=== PATIENT | female | born 1995 | race African-American/Black ===

== ENCOUNTER 2022-01-11 19:47 | Emergency (ER) | payer OTHER ==
[2022-01-11 20:49] LABS: Absolute Lymphocytes (CBC) 2.7 K/uL (0.7-4.9); Hematocrit 33.3 % (36.0-45.0); Lymphocytes % 37.7 % (15.3-44.8); RBC Red Blood Cell Count 4.62 M/uL (3.86-4.86)
[2022-01-11 21:06] LABS: Albumin 3.7 g/dL (3.4-5.0); Bilirubin Total 0.4 mg/dL (0.2-1.0); Potassium 3.8 mmol/L (3.5-5.1); Protein, Total 7.2 g/dL (6.4-8.2)
[2022-01-11 21:14] LABS: Urine Bacteria <20 /HPF (<20); Urine Mucus 1+ /HPF (None Seen); Urine RBC <5 /HPF (None Seen)
--- NOTE | 2022-01-11 21:42 | ER ---
Nurse's Notes [facility] Name: Irma López Age: 26 yrs Sex: Female : 1995 Arrival Date: 01/11/2022 Time: 19:51 Bed 11 Private MD: Diagnosis: Lower abdominal pain, unspecified-Left, left flank Presentation: 01/11 20:13 Chief complaint: Left flank pain that radiates to LLQ, vaginal itching, and spotty hb vaginal bleeding after unprotected intercourse 2 days ago. Coronavirus screen: At this time, the client does not indicate any symptoms associated with coronavirus-19. Ebola Screen: No symptoms or risks identified at this time. Initial Sepsis Screen: Does the patient meet any 2 criteria? No. Patient's initial sepsis screen is negative. Does the patient have a suspected source of infection? No. Patient's initial sepsis screen is negative. Risk Assessment: Do you want to hurt yourself or someone else? Patient reports no desire to harm self or others. Onset of symptoms was January 09, 2022. 20:13 Method Of Arrival: Ambulatory hb 20:13 Acuity: TAZ 3 hb VALANCE CUTTER: 20:15 LMP 12/24/2021 hb Historical: - Allergies: 20:15 No Known Allergies; hb - PMHx: 20:15 Asthma; hb - Immunization history:: Adult Immunizations up to date. - Social history:: Smoking status: Patient denies any tobacco usage or history of. Screenin:37 Abuse screen: Denies threats or abuse. Denies injuries from another. Nutritional ld1 screening: No deficits noted. Tuberculosis screening: No symptoms or risk factors identified. Fall Risk None identified. Assessment: 20:37 General: Appears in no apparent distress. comfortable, Behavior is calm, cooperative, ld1 appropriate for age. Pain: Complains of pain in abdomen Pain does not radiate. Pain currently is 5 out of 10 on a pain scale. Quality of pain is described as crampy. Neuro: Level of Consciousness is awake, alert, obeys commands, Oriented to person, place, time, situation. Cardiovascular: Capillary refill < 3 seconds Patient's skin is warm and dry. Respiratory: Airway is patent Respiratory effort is even, unlabored. GI: Abdomen is flat, non-distended, Bowel sounds present X 4 quads. Abd is soft Abd is non tender. : No signs and/or symptoms were reported regarding the genitourinary system. EENT: No signs and/or symptoms were reported regarding the EENT system. Derm: No signs and/or symptoms reported regarding the dermatologic system. Musculoskeletal: No signs and/or symptoms reported regarding the musculoskeletal system. Vital Signs: 20:13 BP 125 / 78; Pulse 63; Resp 16; Temp 97.9; Pulse Ox 100% on R/A; Weight 51.71 kg; hb Height 5 ft. 1 in. (154.94 cm); Pain 5/10; 20:13 Body Mass Index 21.54 (51.71 kg, 154.94 cm) hb ED Course: 19:51 Patient arrived in ED. bp1 20:01 [facility]C [facility] kb 20:01 Andrea Torres MD is Attending Physician. kb 20:15 Triage completed. hb 20:15 Arm band placed on. hb 20:28 Maria Esther Mcbride, RN is Primary Nurse. ld1 20:37 Patient has correct armband on for positive identification. Placed in gown. Bed in low ld1 position. Call light in reach. Side rails up X2. nurse monitoring on. Pulse ox on. NIBP on. Door closed. Noise minimized. Warm blanket given. 20:37 No provider procedures requiring assistance completed. Inserted saline lock: 20 gauge ld1 in right antecubital area, using aseptic technique. Blood collected. 21:53 IV discontinued, intact, bleeding controlled, No redness/swelling at site. ld1 Administered Medications: 21:25 Drug: Zithromax (azithromycin) 1 grams Route: PO; ld1 21:52 Follow up: Response: No adverse reaction ld1 21:25 Drug: Rocephin (cefTRIAXone) 500 mg Route: IM; Site: right deltoid; ld1 21:52 Follow up: Response: No adverse reaction ld1 Medication: 20:37 VIS not applicable for this client. ld1 Outcome: 21:41 Discharge ordered by . kb 21:52 Discharged to home ambulatory. ld1 21:52 Condition: stable 21:52 Discharge instructions given to patient, Instructed on discharge instructions, follow up and referral plans. Demonstrated understanding of instructions, follow-up care. 21:53 Patient left the ED. ld1 Signatures: Lori Peace FNP-C FRONT OFFICE JAVA DEVELOPER-Ckb Rosario Magana, RN RN Sunita Ray Lauren, RN RN ld1
--- NOTE | 2022-01-11 21:42 | EDPHYS ---
Physician Documentation [facility] Name: Irma López Age: 26 yrs Sex: Female : 1995 Arrival Date: 01/11/2022 Time: 19:51 Bed 11 Private MD: ED Physician Andrea Torres HPI: 01/12 00:40 This 26 yrs old Black Female presents to ER via Ambulatory with complaints of Abdominal kb Pain, Low Back Pain, Vaginal Bleeding, Vaginal Pain. 00:40 The patient presents with abdominal pain. Onset: The symptoms/episode began/occurred 4 kb day(s) ago. The symptoms do not radiate. Associated signs and symptoms: Pertinent positives: vaginal bleeding. The symptoms are described as constant. Modifying factors: The symptoms are alleviated by nothing, the symptoms are aggravated by nothing. Severity of pain: At its worst the pain was mild in the emergency department the pain is unchanged. The patient has not experienced similar symptoms in the past. The patient has not recently seen a physician. Pt reports LLQ, low back pain, vaginal spotting and itching that started on Tuesday after having unprotected intercourse with new partner. . MEDICAL CONCIERGE: 01/11 20:15 LMP 12/24/2021 hb Historical: - Allergies: 20:15 No Known Allergies; hb - PMHx: 20:15 Asthma; hb - Immunization history:: Adult Immunizations up to date. - Social history:: Smoking status: Patient denies any tobacco usage or history of. ROS: 01/12 00:38 Constitutional: Negative for fever, chills, and weight loss. kb Abdomen/GI: Positive for abdominal pain, Negative for nausea, vomiting, and diarrhea. : Positive for vaginal bleeding, vaginal itching. All other systems are negative. Exam: 00:40 Constitutional: This is a well developed, well nourished patient who is awake, alert, kb and in no acute distress. Head/Face: Normocephalic, atraumatic. ENT: Moist Mucous membranes Cardiovascular: Regular rate and rhythm with a normal S1 and S2. No gallops, murmurs, or rubs. No pulse deficits. Respiratory: Respirations even and unlabored. No increased work of breathing. Talking in full sentences Abdomen/GI: Soft, non-tender. No distention Back: No spinal tenderness. No costovertebral tenderness. Full range of motion. Skin: Warm, dry with normal turgor. Normal color. MS/ Extremity: Pulses equal, no cyanosis. Neurovascular intact. Full, normal range of motion. Neuro: Awake and alert, GCS 15, oriented to person, place, time, and situation. Moves all extremities. Normal gait. Psych: Awake, alert, with orientation to person, place and time. Behavior, mood, and affect are within normal limits. Vital Signs: 01/11 20:13 BP 125 / 78; Pulse 63; Resp 16; Temp 97.9; Pulse Ox 100% on R/A; Weight 51.71 kg; hb Height 5 ft. 1 in. (154.94 cm); Pain 5/10; 20:13 Body Mass Index 21.54 (51.71 kg, 154.94 cm) hb MDM: 20:17 Patient medically screened. kb 01/12 00:38 Data reviewed: vital signs, nurses notes. Data interpreted: Pulse oximetry: on room air kb is 100 %. Interpretation: normal. Counseling: I had a detailed discussion with the patient and/or guardian regarding: the historical points, exam findings, and any diagnostic results supporting the discharge/admit diagnosis, lab results, the need for outpatient follow up, a family practitioner, to return to the emergency department if symptoms worsen or persist or if there are any questions or concerns that arise at home. 00:40 ED course: Pt denies vaginal discharge. States she is concerned about a STI and wants kb to be treated prophylactically. . 01/11 20:26 Order name: CBC with Diff; Complete Time: 21:16 kb 01/11 20:26 Order name: CMP; Complete Time: 21:10 kb 01/11 20:26 Order name: Lipase; Complete Time: 21:10 kb 01/11 20:26 Order name: Urine Microscopic Only; Complete Time: 21:16 kb 01/11 21:10 Order name: Urine --Ancillary (enter results); Complete Time: 00:38 wm 01/11 21:17 Order name: Urine Culture EDCA 01/11 20:26 Order name: IV Saline Lock; Complete Time: 20:37 kb 01/11 20:26 Order name: Labs collected and sent; Complete Time: 20:37 kb 01/11 20:26 Order name: Urine Dipstick-Ancillary (obtain specimen); Complete Time: 20:57 kb 01/11 20:26 Order name: Urine Test (obtain specimen); Complete Time: 20:57 kb Administered Medications: 01/11 21:25 Drug: Zithromax (azithromycin) 1 grams Route: PO; ld1 21:52 Follow up: Response: No adverse reaction ld1 21:25 Drug: Rocephin (cefTRIAXone) 500 mg Route: IM; Site: right deltoid; ld1 21:52 Follow up: Response: No adverse reaction ld1 Disposition: 01/12 04:24 Co-signature as Attending Physician, Andrea Torres MD. rn Disposition Summary: 01/11/22 21:41 Discharge Ordered Location: Home kb Condition: Stable kb Diagnosis - Lower abdominal pain, unspecified - Left, left flank kb Followup: kb - With: Private Physician - When: 2 - 3 days - Reason: Recheck today's complaints, Continuance of care, Re-evaluation by your physician Followup: kb - With: Emergency Department - When: As needed - Reason: Worsening of condition Discharge Instructions: - Discharge Summary Sheet kb - Pelvic Pain, Female, [id number] kb - Preventing Sexually Transmitted Infections, Adult kb Forms: - Medication Reconciliation Form kb - Thank You Letter kb - Antibiotic Education kb - Prescription Opioid Use kb Signatures: Dispatcher [employer] EDMS Lori Peace, FOOD AND BEVERAGE ANALYST-C FOOD AND BEVERAGE ANALYST-Andrea Hamilton MD MD rn Baxter, Heather, RN RN Maria Esther Mcbride RN RN ld1
[2022-01-11 21:47] LABS: Urine Specific Gravity/Preg 1.025 (1.005-1.030)
[2022-01-11] MEDS ORDERED: CEFTRIAXONE 500 MG/VIAL ONE (21:51)
[2022-01-11] MEDS ORDERED: AZITHROMYCIN 250 MG TAB ONE (21:51)
[2022-01-11 22:46] VITALS: BP 125/78; TEMP 97.9; O2SAT 100
== END 2022-01-11 21:53 | disposition home or self-care (01) ==
LOC: ER 19:47
DX: R10.32 Left lower quadrant pain (principal)
CPT/HCPCS: 87088; 85025; 87086; 36415; 81025; 81015; 83690; 80053; 96372; 99284; J0696

== ENCOUNTER 2022-01-27 07:32 | Emergency (ER) | payer OTHER ==
--- OUTSIDE RECORDS SUMMARY | 2022-01-27 07:34 | XMS REPORT | Continuity of Care Document ---
:1995 Author Organization [facility] t Address [address] [place] [address] Care Team Providers Name Role Phone Unavailable Unavailable Unavailable Problems This patient has no known problems. Allergies, Adverse Reactions, Alerts This patient has no known allergies or adverse reactions. Medications This patient has no known medications. Procedures This patient has no known procedures. Encounters Start End Encounter Admission Attending Care Care Encounter Source Date/Time Date/Time Type Type Clinicians Facility Department ID 2019-08-14 Inpatient [facility] [id number] [facility]N W 17:25:00 2019-08-03 2019-08-03 Emergency E [facility] [id number] [facility] 21:28:00 21:28:00 2019-07-14 2019-07-14 Emergency E [facility] [id number] [facility] 14:10:00 14:10:00 2019-07-07 2019-07-07 Emergency E [facility] [id number] [facility] 02:14:00 02:14:00 2019-04-30 2019-04-30 Emergency E [facility] [id number] [facility]NW 00:20:00 00:20:00 2019-04-19 2019-04-19 Outpatient [facility] [id number] [facility]NW 13:08:00 13:08:00 2018-10-11 2018-10-11 Emergency E [facility] [id number] [facility] 20:54:00 20:54:00 Results This patient has no known results.
[2022-01-27] MEDS ORDERED: FAMOTIDINE 20 MG/2 ML VIAL IV ONE (08:34)
[2022-01-27] MEDS ORDERED: ONDANSETRON 4 MG/2 ML VIAL ONE (08:34)
[2022-01-27] MEDS ORDERED: NA CHLORIDE 0.9% 1,000 ML ONE (08:34)
[2022-01-27] MEDS ORDERED: MORPHINE 2 MG/ML SYR ONE (08:34)
[2022-01-27 08:37] LABS: Absolute Lymphocytes (CBC) 2.2 K/uL (0.7-4.9); Hematocrit 36.8 % (36.0-45.0); MCV 72.8 fL (80-100); MPV 8.2 fL (7.6-11.3); RBC Red Blood Cell Count 5.05 M/uL (3.86-4.86)
[2022-01-27 08:58] LABS: Albumin 3.8 g/dL (3.4-5.0); Bilirubin Total 0.3 mg/dL (0.2-1.0); Potassium 3.8 mmol/L (3.5-5.1); Protein, Total 7.6 g/dL (6.4-8.2)
[2022-01-27 09:24] LABS: Urine Blood Negative (Negative); Urine Glucose Negative (Negative); Urine Protein Negative (Negative)
--- NOTE | 2022-01-27 09:51 | RAD REPORT ---
EXAM DESCRIPTION: CT - Abdomen Pelvis W Contrast - 01/27/2022 9:38 am CLINICAL HISTORY: Abdominal pain COMPARISON: none. TECHNIQUE: Computed axial tomography of the abdomen pelvis was obtained. 100 cc Isovue-300 was admin istered intravenously. Oral contrast was not requested which limits evaluation of bowel and appendix All CT scans are performed using dose optimization technique as appropriate and may include automated exposure control or mA/KV adjustment according to patient size. FINDINGS: Periportal edema within the liver. Spleen, pancreas, adrenal and kidneys appear unremarkable. There is no evidence of diverticulitis. A moderate amount of stool within the colon. 2 centimeter right ovarian cyst without significant free fluid. Cervix appears bulky. IMPRESSION: 2 centimeter right ovarian cyst without significant free fluid. Periportal edema within the liver. This is a nonspecific finding but can be associated with inflammat ion Cervix appears bulky. Nonemergent pelvic ultrasound recommended for further evaluation
--- NOTE | 2022-01-27 10:21 | RAD REPORT ---
EXAM DESCRIPTION: US - Abdomen Exam Limited - 01/27/2022 9:16 am CLINICAL HISTORY: Abdominal pain. COMPARISON: None. FINDINGS: The gallbladder wall is not thickened. A gallstone is not seen. The biliary tree is normal caliber. IMPRESSION: Unremarkable gallbladder ultrasound.
--- NOTE | 2022-01-27 11:04 | ER ---
Nurse's Notes [facility] Name: Irma López Age: 26 yrs Sex: Female : 1995 Arrival Date: 01/27/2022 Time: 07:34 Bed 26 Private MD: Diagnosis: Pelvic and perineal pain;Other ovarian cysts Presentation: 01/27 07:36 Chief complaint: Patient states: i have been having abdominal pain all the way across tw2 for a week now and ibuprofen isnt helping. denies N/V/D, it has been hurting worse and i need to see what is going on. Coronavirus screen: At this time, the client does not indicate any symptoms associated with coronavirus-19. Ebola Screen: Patient denies travel to an Ebola-affected area in the 21 days before illness onset. Initial Sepsis Screen: Does the patient meet any 2 criteria? No. Patient's initial sepsis screen is negative. Does the patient have a suspected source of infection? No. Patient's initial sepsis screen is negative. Risk Assessment: Do you want to hurt yourself or someone else? Patient reports no desire to harm self or others. Onset of symptoms was January 27, 2022. 07:36 Method Of Arrival: Ambulatory tw2 07:36 Acuity: TAZ 3 tw2 Triage Assessment: 07:39 General: Appears in no apparent distress. slender, well groomed, Behavior is calm, tw2 cooperative, appropriate for age. Pain: Complains of pain in right lower quadrant and left lower quadrant. GI: Reports lower abdominal pain, Patient currently denies diarrhea, nausea, vomiting. STUDENT RECORDS COORDINATOR: 07:39 LMP 01/09/2022 tw2 Historical: - Allergies: 07:39 No Known Allergies; tw2 - Home Meds: 07:39 None [Active]; tw2 - PMHx: 07:39 Asthma; tw2 - PSHx: 07:39 None; tw2 - Immunization history:: Client reports having NOT received the Covid vaccine. - Social history:: Smoking status: Patient denies any tobacco usage or history of. - Family history:: not pertinent. Screenin:40 Abuse screen: Denies threats or abuse. Nutritional screening: No deficits noted. tw2 Tuberculosis screening: No symptoms or risk factors identified. Fall Risk None identified. Assessment: 08:00 General: Appears in no apparent distress. comfortable, slender, well groomed, Behavior ph is calm, cooperative, appropriate for age, Denies fever, feeling ill. Pain: Complains of pain in right lower quadrant and left lower quadrant. Neuro: Level of Consciousness is awake, alert, obeys commands, Oriented to person, place, time, situation. Cardiovascular: Capillary refill < 3 seconds in bilateral fingers Patient's skin is warm and dry. Respiratory: Airway is patent Respiratory effort is even, unlabored. GI: Abdomen is flat, non-distended, Bowel sounds present X 4 quads. Abd is soft X 4 quads Reports lower abdominal pain, Patient currently denies constipation, diarrhea, nausea, vomiting. : Reports pain in right in left in suprapubic area. Derm: Skin is intact, is healthy with good turgor, Skin is pink, warm \T\ dry. Musculoskeletal: Circulation, motion, and sensation intact. Range of motion: intact in all extremities. 09:12 Reassessment: Patient appears in no apparent distress at this time. Patient and/or ph family updated on plan of care and expected duration. Pain level reassessed. Patient is alert, oriented x 3, equal unlabored respirations, skin warm/dry/pink. US at bedside for exam. 11:33 Reassessment: Patient appears in no apparent distress at this time. Patient and/or ph family updated on plan of care and expected duration. Pain level reassessed. Patient is alert, oriented x 3, equal unlabored respirations, skin warm/dry/pink. D/C pending completion of IV medications'. Vital Signs: 07:36 BP 119 / 75; Pulse 70; Resp 17; Temp 98.7(TE); Pulse Ox 100% on R/A; Weight 52.16 kg tw2 (R); Height 4 ft. 11 in. (149.86 cm); Pain 9/10; 10:00 BP 116 / 82; Pulse 74; Resp 18; Pulse Ox 99% on R/A; ph 11:33 BP 113 / 76; Pulse 69; Resp 18; Temp 98.0; Pulse Ox 98% on R/A; ph 07:36 Body Mass Index 23.23 (52.16 kg, 149.86 cm) tw2 ED Course: 07:34 Patient arrived in ED. rg4 07:38 Triage completed. tw2 07:39 Arm band placed on. tw2 07:40 Eric Clark MD is Attending Physician. rosa elena 07:40 Bed in low position. Call light in reach. Pulse ox on. NIBP on. tw2 07:54 Ileana Domínguez, RN is Primary Nurse. ph 08:15 Inserted saline lock: 20 gauge in left antecubital area, using aseptic technique. Blood ph collected. 09:18 Abdomen Limited US In Process Unspecified. EDMS 09:29 No provider procedures requiring assistance completed. ph 09:39 CT Abd/Pelvis - IV Contrast Only In Process Unspecified. EDMS 10:53 US Transvaginal Study (Probe) In Process Unspecified. EDMS 11:01 Anel Baez MD is Referral Physician. rosa elena 11:56 IV discontinued, intact, bleeding controlled, No redness/swelling at site. Pressure ph dressing applied. Administered Medications: 08:39 Drug: NS 0.9% 1000 ml Route: IV; Rate: 1 bolus; Site: left antecubital; ph 09:27 Follow up: Response: No adverse reaction; IV Status: Completed infusion; IV Intake: ph 1000ml 08:39 Drug: Zofran (Ondansetron) 4 mg Route: IVP; Site: left antecubital; ph 09:28 Follow up: Response: No adverse reaction ph 08:39 Drug: morphine 2 mg Route: IVP; Infused Over: 4 mins; Site: left antecubital; ph 09:27 Follow up: Response: No adverse reaction; Pain is decreased; RASS: Alert and Calm (0) ph 08:39 Drug: Pepcid (famotidine) 20 mg Route: IVP; Site: left antecubital; ph 09:27 Follow up: Response: No adverse reaction ph 11:31 Drug: Zithromax (azithromycin) 1 grams Route: PO; ph 11:55 Follow up: Response: No adverse reaction ph 11:31 Drug: Rocephin (cefTRIAXone) 1 grams Route: IV; Rate: per protocol; Site: left ph antecubital; 11:55 Follow up: Response: No adverse reaction; IV Status: Completed infusion ph 11:31 Drug: Ketorolac 15 mg Route: IVP; Site: left antecubital; ph 11:54 Follow up: Response: No adverse reaction; Pain is decreased ph Medication: 07:41 VIS not applicable for this client. tw2 Intake: 09:27 IV: 1000ml; Total: 1000ml. ph Outcome: 11:03 Discharge ordered by . rosa elena 11:56 Discharged to home ambulatory. ph 11:56 Condition: good 11:56 Discharge instructions given to patient, Instructed on discharge instructions, follow up and referral plans. medication usage, Demonstrated understanding of instructions, follow-up care, medications, Prescriptions given X 2. 11:56 Patient left the ED. ph Signatures: Dispatcher [employer] EDMO Eric Clark MD MD cha Hall, Patricia, RN RN Jamaica Kumar RN RN 2 Catherine Cavanaugh rg4 Corrections: (The following items were deleted from the chart) 07:39 07:39 PSHx: Unable to Obtain; tw2 tw2
--- NOTE | 2022-01-27 11:04 | EDPHYS ---
Physician Documentation [facility] Name: Irma López Age: 26 yrs Sex: Female : 1995 Arrival Date: 01/27/2022 Time: 07:34 Bed 26 Private MD: ED Physician Eric Clark HPI: 01/27 10:57 This 26 yrs old Black Female presents to ER via Ambulatory with complaints of Abdominal rosa elena Pain. 10:57 The patient presents with pelvic pain, that is located in/on the right lower quadrant rosa elena and left lower quadrant. Onset: The symptoms/episode began/occurred 5 day(s) ago. Modifying factors: The symptoms are alleviated by nothing, the symptoms are aggravated by nothing. Associated signs and symptoms: The patient has no apparent associated signs or symptoms. Severity of symptoms: At their worst the symptoms were mild, in the emergency department the symptoms are unchanged. The patient is sexually active, reportedly has a single partner. The patient has not experienced similar symptoms in the past. 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 - Social history:: Smoking status: Patient denies any tobacco usage or history of. - Family history:: not pertinent. ROS: 10:57 Constitutional: Negative for fever, chills, and weight loss, Eyes: Negative for injury, rosa elena pain, redness, and discharge, ENT: Negative for injury, pain, and discharge, Neck: Negative for injury, pain, and swelling, Cardiovascular: Negative for chest pain, palpitations, and edema, Respiratory: Negative for shortness of breath, cough, wheezing, and pleuritic chest pain, Back: Negative for injury and pain, : Negative for injury, bleeding, discharge, and swelling, MS/Extremity: Negative for injury and deformity, Skin: Negative for injury, rash, and discoloration, Neuro: Negative for headache, weakness, numbness, tingling, and seizure, Psych: Negative for depression, anxiety, suicide ideation, homicidal ideation, and hallucinations, Allergy/Immunology: Negative for hives, rash, and allergies, Endocrine: Negative for neck swelling, polydipsia, polyuria, polyphagia, and marked weight changes, Hematologic/Lymphatic: Negative for swollen nodes, abnormal bleeding, and unusual bruising. 10:57 Abdomen/GI: Positive for abdominal pain, of the right lower quadrant and left lower quadrant. Exam: 10:57 Constitutional: This is a well developed, well nourished patient who is awake, alert, rosa elena and in no acute distress. Head/Face: Normocephalic, atraumatic. Eyes: Pupils equal round and reactive to light, extra-ocular motions intact. Lids and lashes normal. Conjunctiva and sclera are non-icteric and not injected. Cornea within normal limits. Periorbital areas with no swelling, redness, or edema. ENT: Nares patent. No nasal discharge, no septal abnormalities noted. Tympanic membranes are normal and external auditory canals are clear. Oropharynx with no redness, swelling, or masses, exudates, or evidence of obstruction, uvula midline. Mucous membranes moist. Neck: Trachea midline, no thyromegaly or masses palpated, and no cervical lymphadenopathy. Supple, full range of motion without nuchal rigidity, or vertebral point tenderness. No Meningismus. Chest/axilla: Normal chest wall appearance and motion. Nontender with no deformity. No lesions are appreciated. Cardiovascular: Regular rate and rhythm with a normal S1 and S2. No gallops, murmurs, or rubs. Normal PMI, no JVD. No pulse deficits. Respiratory: Lungs have equal breath sounds bilaterally, clear to auscultation and percussion. No rales, rhonchi or wheezes noted. No increased work of breathing, no retractions or nasal flaring. Back: No spinal tenderness. No costovertebral tenderness. Full range of motion. Skin: Warm, dry with normal turgor. Normal color with no rashes, no lesions, and no evidence of cellulitis. MS/ Extremity: Pulses equal, no cyanosis. Neurovascular intact. Full, normal range of motion. Neuro: Awake and alert, GCS 15, oriented to person, place, time, and situation. Cranial nerves II-XII grossly intact. Motor strength 5/5 in all extremities. Sensory grossly intact. Cerebellar exam normal. Normal gait. Psych: Awake, alert, with orientation to person, place and time. Behavior, mood, and affect are within normal limits. 10:57 Abdomen/GI: Inspection: abdomen appears normal, Bowel sounds: active, Palpation: mild abdominal tenderness, in the right lower quadrant and left lower quadrant, Liver: no appreciated palpable abnormalities, Hernia: not appreciated. Vital Signs: 07:36 BP 119 / 75; Pulse 70; Resp 17; Temp 98.7(TE); Pulse Ox 100% on R/A; Weight 52.16 kg tw2 (R); Height 4 ft. 11 in. (149.86 cm); Pain 9/10; 10:00 BP 116 / 82; Pulse 74; Resp 18; Pulse Ox 99% on R/A; ph 11:33 BP 113 / 76; Pulse 69; Resp 18; Temp 98.0; Pulse Ox 98% on R/A; ph 07:36 Body Mass Index 23.23 (52.16 kg, 149.86 cm) tw2 MDM: 07:40 Patient medically screened. [facility] 11:00 Differential diagnosis: malik infection, cervicitis, kidney stone, nonspecific rosa elena abdominal pain, ovarian cyst, pelvic inflammatory disease, uterine fibroids, urinary tract infection. Data reviewed: vital signs, nurses notes, lab test result(s), radiologic studies, CT scan, ultrasound. Data interpreted: equipment monitor phototypesetting: not applicable for this patient encounter. rate is 70 beats/min, rhythm is regular, Pulse oximetry: on room air is 100 %. Counseling: I had a detailed discussion with the patient and/or guardian regarding: the historical points, exam findings, and any diagnostic results supporting the discharge/admit diagnosis, lab results, radiology results, the need for outpatient follow up, for definitive care, a family practitioner, an OB/Gyne specialist. 01/27 08:28 Order name: Comprehensive Metabolic Panel; Complete Time: 09:40 EDMS 01/27 08:28 Order name: Lipase; Complete Time: 09:40 EDMS 01/27 07:44 Order name: Abdomen Limited US [facility] 01/27 07:44 Order name: CT Abd/Pelvis - IV Contrast Only; Complete Time: 11:05 [facility] 01/27 08:28 Order name: CBC with Automated Diff; Complete Time: 09:40 EDMS 01/27 09:24 Order name: Urine Dipstick-Ancillary; Complete Time: 09:40 EDMS 01/27 09:25 Order name: Urine --Ancillary (enter results); Complete Time: 09:40 bd 01/27 10:02 Order name: US Transvaginal Study (Probe) rosa elena 01/27 07:44 Order name: IV Saline Lock; Complete Time: 08:18 rosa elena 01/27 07:44 Order name: Labs collected and sent; Complete Time: 08:18 rosa elena 01/27 07:44 Order name: Urine Dipstick-Ancillary (obtain specimen); Complete Time: 09:27 rosa elena 01/27 07:44 Order name: Urine Test (obtain specimen); Complete Time: 09:27 rosa elena Administered Medications: 08:39 Drug: NS 0.9% 1000 ml Route: IV; Rate: 1 bolus; Site: left antecubital; ph 09:27 Follow up: Response: No adverse reaction; IV Status: Completed infusion; IV Intake: ph 1000ml 08:39 Drug: Zofran (Ondansetron) 4 mg Route: IVP; Site: left antecubital; ph 09:28 Follow up: Response: No adverse reaction ph 08:39 Drug: morphine 2 mg Route: IVP; Infused Over: 4 mins; Site: left antecubital; ph 09:27 Follow up: Response: No adverse reaction; Pain is decreased; RASS: Alert and Calm (0) ph 08:39 Drug: Pepcid (famotidine) 20 mg Route: IVP; Site: left antecubital; ph 09:27 Follow up: Response: No adverse reaction ph 11:31 Drug: Zithromax (azithromycin) 1 grams Route: PO; ph 11:55 Follow up: Response: No adverse reaction ph 11:31 Drug: Rocephin (cefTRIAXone) 1 grams Route: IV; Rate: per protocol; Site: left ph antecubital; 11:55 Follow up: Response: No adverse reaction; IV Status: Completed infusion ph 11:31 Drug: Ketorolac 15 mg Route: IVP; Site: left antecubital; ph 11:54 Follow up: Response: No adverse reaction; Pain is decreased ph Disposition Summary: 01/27/22 11:03 Discharge Ordered Location: Home rosa elena Problem: new rosa elena Symptoms: have improved rosa elena Condition: Stable rosa elena Diagnosis - Pelvic and perineal pain rosa elena - Other ovarian cysts rosa elena Followup: rosa elena - With: Private Physician - When: 2 - 3 days - Reason: Recheck today's complaints, Continuance of care, Re-evaluation by your physician Followup: [facility] - With: Anel Baez MD - When: 2 - 3 days - Reason: Recheck today's complaints, Continuance of care, Re-evaluation by your physician Discharge Instructions: - Discharge Summary Sheet rosa elena - Ovarian Cyst rosa elena - Pelvic Pain, Female rosa elena - Pelvic Pain, Female, [id number] rosa elena - Ovarian Cyst, [id number] rosa elena Forms: - Medication Reconciliation Form rosa elena - Thank You Letter rosa elena - Antibiotic Education rosa elena - Prescription Opioid Use rosa elena - Work release form Prescriptions: - Flagyl 500 mg Oral Tablet - take 1 tablet by ORAL route every 12 hours for 7 days; 14 tablet; Refills: 0, [facility] Product Selection Permitted - Ibuprofen 600 mg Oral Tablet - take 1 tablet by ORAL route every 8 hours As needed take with food; 21 tablet; [facility] Refills: 0, Product Selection Permitted Signatures: Dispatcher [employer] Eric Marcelo MD MD cha Hall, Patricia RN RN Jamaica Kumar RN RN tw2 Corrections: (The following items were deleted from the chart) 07:39 07:39 PSHx: Unable to Obtain; tw2 tw2 08:41 08:29 CBC+H.LAB.BRZ ordered. EDMS EDMS 08:42 08:29 COMPREHENSIVE METABOLIC PANEL+C.LAB.BRZ ordered. EDMS EDMS 08:42 08:29 LIPASE+C.LAB.BRZ ordered. EDMS EDMS
[2022-01-27] MEDS ORDERED: AZITHROMYCIN 1 GM PACKET ONE (11:27)
[2022-01-27] MEDS ORDERED: CEFTRIAXONE 1000 MG/VIAL ONE (11:27)
[2022-01-27] MEDS ORDERED: NA CHLORIDE 0.9% 50 ML ONE (11:28)
[2022-01-27] MEDS ORDERED: KETOROLAC 30 MG/ML INJ ONE (11:28)
--- NOTE | 2022-01-27 11:28 | RAD REPORT ---
EXAM DESCRIPTION: US - Transvaginal Study Probe - 01/27/2022 10:52 am CLINICAL HISTORY: Pelvic pain COMPARISON: January 27, 2022 cat scan FINDINGS: The uterus measures 7 x 4 x 5 cm. A fibroid is not seen. The endometrial stripe measures 3 millimeters. Small nabothian cyst cervix. No abnormality of the cervix visualized. The ovaries are normal in size and echotexture. The right and left adnexa unremarkable No significant free fluid is seen. IMPRESSION: Unremarkable pelvic ultrasound
[2022-01-27 12:38] VITALS: BP 113/76; TEMP 98; O2SAT 98
== END 2022-01-27 11:56 | disposition home or self-care (01) ==
LOC: ER 07:32
DX: N83.299 Other ovarian cyst, unspecified side (principal)
CPT/HCPCS: 85025; 36415; 81025; 81003; 83690; 80053; 74177; 76705; 76830; Q9967; J2270; J7030; J2405; J3490

== ENCOUNTER 2022-02-10 21:23 | Emergency (ER) | payer OTHER ==
--- OUTSIDE RECORDS SUMMARY | 2022-02-10 21:26 | XMS REPORT | Continuity of Care Document ---
:1995 Author Organization [facility] t Address [address] [place] [address] Care Team Providers Name Role Phone Unavailable [...]
[2022-02-10 22:57] LABS: Hematocrit 36.7 % (36.0-45.0); Lymphocytes % 23.1 % (15.3-44.8); MCV 72.1 fL (80-100); RBC Red Blood Cell Count 5.09 M/uL (3.86-4.86)
[2022-02-10 23:08] LABS: Albumin 3.9 g/dL (3.4-5.0); Bilirubin Total 0.3 mg/dL (0.2-1.0); Potassium 3.9 mmol/L (3.5-5.1); Protein, Total 7.9 g/dL (6.4-8.2)
[2022-02-10 23:13] LABS: Urine Blood 3+ (Negative); Urine Glucose Negative (Negative); Urine Protein 3+ (Negative); Urine Specific Gravity >=1.030 (1.005-1.030); Urine pH 6.5 (5.0-7.0)
[2022-02-10] MEDS ORDERED: CEFTRIAXONE 1000 MG/VIAL ONE (23:40)
[2022-02-11 00:32] LABS: Urine Bacteria Loaded /HPF (<20); Urine Mucus 2+ /HPF (None Seen); Urine RBC >50 /HPF (None Seen)
[2022-02-11] MEDS ORDERED: KETOROLAC 30 MG/ML INJ ONE (00:40)
--- NOTE | 2022-02-11 00:54 | EDPHYS ---
Physician Documentation [facility] Name: Irma López Age: 26 yrs Sex: Female : 1995 Arrival Date: 02/10/2022 Time: 21:25 Bed 11 Private MD: ED Physician Andrea Torres HPI: 02/10 22:08 This 26 yrs old Black Female presents to ER via Ambulatory with complaints of Pelvic jmm Pain. 22:08 The patient presents with pelvic pain. Onset: The symptoms/episode began/occurred jmm gradually, 2 week(s) ago. Modifying factors: The symptoms are alleviated by nothing, the symptoms are aggravated by nothing. Is a 26-year-old female with history of asthma the presents emerged department with complaints of pelvic pain bleeding possibly 2 weeks ago and diagnosed with ovarian cyst. Denies vomiting, vaginal discharge. Patient states pain is intensified and is beginning to radiate into the right thigh. 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 - Social history:: Smoking status: Patient denies any tobacco usage or history of. ROS: 22:08 Constitutional: Negative for fever, chills, and weight loss, Cardiovascular: Negative jmm for chest pain, palpitations, and edema, Respiratory: Negative for shortness of breath, cough, wheezing, and pleuritic chest pain. 22:08 : Positive for pelvic pain. 22:08 All other systems are negative. Exam: 22:08 Constitutional: This is a well developed, well nourished patient who is awake, alert, jmm and in no acute distress. Head/Face: atraumatic. Eyes: EOMI, no conjunctival erythema appreciated ENT: Moist Mucus Membranes Neck: Trachea midline, Supple Chest/axilla: Normal chest wall appearance and motion. Cardiovascular: Regular rate and rhythm. No edema appreciated Respiratory: Normal respirations, no respiratory distress appreciated 22:08 Back: Normal ROM Skin: General appearance color normal MS/ Extremity: Moves all extremities, no obvious deformities appreciated, no edema noted to the lower extremities Neuro: Awake and alert Psych: Behavior is normal, Mood is normal, Patient is cooperative and pleasant 22:08 Abdomen/GI: Inspection: abdomen appears normal, Bowel sounds: normal, Palpation: soft, mild abdominal tenderness, in the suprapubic area and right lower quadrant. Vital Signs: 22:03 BP 125 / 70; Pulse 86; Resp 17; Temp 99.1; Pulse Ox 100% on R/A; Weight 54.43 kg; kd3 Height 5 ft. 1 in. (154.94 cm); Pain 10/10; 02/11 01:01 BP 120 / 71; Pulse 82; Resp 16; Temp 98.2(O); Pulse Ox 100% ; kd3 02/10 22:03 Body Mass Index 22.67 (54.43 kg, 154.94 cm) 3 MDM: 02/10 22:08 Patient medically screened. [facility] 02/11 00:52 Data reviewed: vital signs, nurses notes. Counseling: I had a detailed discussion with [facility] the patient and/or guardian regarding: the historical points, exam findings, and any diagnostic results supporting the discharge/admit diagnosis, lab results, radiology results, the need for outpatient follow up, to return to the emergency department if symptoms worsen or persist or if there are any questions or concerns that arise at home. ED course: Pain is alleviated in the ED. Patient advised follow-up PCP and otherwise given strict return precautions. Patient understood and agrees plan of care.. 02/10 22:11 Order name: CBC with Diff; Complete Time: 23:08 [facility] 02/10 22:11 Order name: CMP; Complete Time: 23:08 [facility] 02/10 22:11 Order name: Lipase; Complete Time: 23:08 [facility] 02/10 23:11 Order name: Urine Microscopic Only; Complete Time: 00:38 [facility] 02/10 23:13 Order name: Urine Dipstick-Ancillary; Complete Time: 23:21 [facility] 02/10 22:11 Order name: IV Saline Lock; Complete Time: 22:40 [facility] 02/10 22:11 Order name: Labs collected and sent; Complete Time: 22:40 [facility] 02/10 22:15 Order name: CT Abd/Pelvis - IV Contrast Only [facility] 02/10 22:47 Order name: Urine Dipstick-Ancillary (obtain specimen); Complete Time: 23:14 mw2 02/10 22:47 Order name: Urine Test (obtain specimen); Complete Time: 23:14 mw2 Administered Medications: 02/10 23:35 Drug: Rocephin (cefTRIAXone) 1 grams Route: IV; Rate: calculated rate; Site: right kd3 antecubital; 02/11 01:01 Follow up: IV Status: Completed infusion kd3 00:33 Drug: Ketorolac 30 mg Route: IVP; Site: right antecubital; kd3 01:01 Follow up: Response: No adverse reaction kd3 Disposition: 03:33 Co-signature as Attending Physician, Andrea Torres MD. rn Disposition Summary: 02/11/22 00:53 Discharge Ordered Location: Home [facility] Condition: Stable [facility] Diagnosis - Pelvic and perineal pain [facility] - Acute Cystitis [facility] - UTI [facility] Followup: [facility] - With: Anel Baez MD - When: 2 - 3 days - Reason: Recheck today's complaints, Continuance of care, Re-evaluation by your physician Discharge Instructions: - Discharge Summary Sheet jm - Pelvic Pain, Female jmm - Urinary Tract Infection, Adult [facility] Forms: - Medication Reconciliation Form [facility] - Thank You Letter [facility] - Antibiotic Education [facility] - Prescription Opioid Use [facility] Prescriptions: - cefpodoxime 200 mg Oral Tablet - take 1 tablet by ORAL route every 12 hours for 10 days with food; 20 tablet; [facility] Refills: 0, Product Selection Permitted - Ultracet 37.5-325 mg Oral Tablet - take 1 tablet by ORAL route every 6 hours - for up to 5 days; do not exceed 8 jmm tablets per day.; 20 tablet; Refills: 0, Product Selection Permitted Signatures: Dispatcher [employer] Idris Colunga PA PA jmm Nieto, Roman, MD MD rn Westbrook, MyKena mw2 Sue Keith RN RN kd3
--- NOTE | 2022-02-11 00:54 | ER ---
Nurse's Notes [facility] Name: Irma López Age: 26 yrs Sex: Female : 1995 Arrival Date: 02/10/2022 Time: 21:25 Bed 11 Private MD: Diagnosis: Pelvic and perineal pain;Acute Cystitis;UTI Presentation: 02/10 22:03 Chief complaint: Patient states: Im having real bad pelvic pain. I know I have ovarian kd3 cysts but the pain is real bad. I can barely walk or move. I found out i had the cyst two weeks ago. Coronavirus screen: Vaccine status: Patient reports being unvaccinated. Ebola Screen: No symptoms or risks identified at this time. Initial Sepsis Screen: Does the patient meet any 2 criteria? No. Patient's initial sepsis screen is negative. Does the patient have a suspected source of infection? No. Patient's initial sepsis screen is negative. Risk Assessment: Do you want to hurt yourself or someone else? Patient reports no desire to harm self or others. Onset of symptoms was February 10, 2022. 22:03 Method Of Arrival: Ambulatory kd3 22:03 Acuity: TAZ 3 kd3 Triage Assessment: 22:05 General: Appears uncomfortable, Behavior is calm, cooperative. Pain: Complains of pain kd3 in suprapubic area and right inguinal area. 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 - Social history:: Smoking status: Patient denies any tobacco usage or history of. Screenin:06 Abuse screen: Denies threats or abuse. Denies injuries from another. Nutritional kd3 screening: No deficits noted. Tuberculosis screening: No symptoms or risk factors identified. Fall Risk None identified. Assessment: 02/11 01:01 General: Appears in no apparent distress. Behavior is calm, cooperative. kd3 Vital Signs: 02/10 22:03 BP 125 / 70; Pulse 86; Resp 17; Temp 99.1; Pulse Ox 100% on R/A; Weight 54.43 kg; kd3 Height 5 ft. 1 in. (154.94 cm); Pain 10/10; 02/11 01:01 BP 120 / 71; Pulse 82; Resp 16; Temp 98.2(O); Pulse Ox 100% ; kd3 02/10 22:03 Body Mass Index 22.67 (54.43 kg, 154.94 cm) kd3 ED Course: 02/10 21:25 Patient arrived in ED. ja2 21:49 Idris Dhaliwal PA is PHCP. m 21:49 Andrea Torres MD is Attending Physician. jmm 22:05 Triage completed. kd3 22:05 Arm band placed on right wrist. kd3 22:06 Patient has correct armband on for positive identification. kd3 22:40 Inserted saline lock: 20 gauge in right antecubital area, using aseptic technique. zm Blood collected. 22:40 CBC with Diff Sent. zm 22:40 CMP Sent. zm 22:40 Lipase Sent. zm 23:10 Sue Keith, PURNIMA is Primary Nurse. kd3 23:14 Urine Microscopic Only Sent. mw2 23:14 Urine Culture Sent. mw2 23:48 CT Abd/Pelvis - IV Contrast Only In Process Unspecified. EDMS 02/11 00:52 Anel Baez MD is Referral Physician. [facility] 01:00 No provider procedures requiring assistance completed. IV discontinued, intact, kd3 bleeding controlled, No redness/swelling at site. Pressure dressing applied. Administered Medications: 02/10 23:35 Drug: Rocephin (cefTRIAXone) 1 grams Route: IV; Rate: calculated rate; Site: right kd3 antecubital; 02/11 01:01 Follow up: IV Status: Completed infusion kd3 00:33 Drug: Ketorolac 30 mg Route: IVP; Site: right antecubital; kd3 01:01 Follow up: Response: No adverse reaction kd3 Medication: 02/10 22:07 VIS not applicable for this client. kd3 Outcome: 02/11 00:53 Discharge ordered by . [facility] 01:00 Discharged to home ambulatory. kd3 01:00 Condition: stable 01:00 Discharge instructions given to patient, Instructed on discharge instructions, follow up and referral plans. medication usage, Demonstrated understanding of instructions, follow-up care, medications, Prescriptions given X 2. 01:02 Patient left the ED. kd3 Signatures: Dispatcher [employer] EDMS Idris Dhaliwal PA PA jmm Higgins, MyKena mw2 China Gonzalez ja2 Sue Keith, PURNIMA RN kd3 Keisha Riley
[2022-02-11 03:43] VITALS: O2SAT 100
[2022-02-11 03:46] VITALS: BP 120/71; TEMP 98.2
--- NOTE | 2022-02-11 14:53 | RAD REPORT ---
EXAM DESCRIPTION: CT - Abdomen Pelvis W Contrast - 02/11/2022 6:53 am CLINICAL HISTORY: The patient is 26 years old and is Female; lower abdominal pain, pelvic pain TECHNIQUE: Axial computed tomography images of the abdomen and pelvis with intravenous contrast. S agittal and coronal reformatted images were created and reviewed. This CT exam was performed using one or more of the following dose reduction techniques: automated exposure control, adjustment of t he mA and/or kV according to patient size, and/or use of iterative reconstruction technique. DLP: 775 mGy*cm COMPARISON: CT abdomen and pelvis dated 01/27/2022. FINDINGS: LUNG BASES: Lung bases are clear. HEART: Visualized heart is normal. ABDOMEN: LIVER: Unremarkable. No mass. GALLBLADDER AND BILE DUCTS: Contracted gallbladder. No calcified stones. No ductal dilation. PANCREAS: Unremarkable. No mass. No ductal dilation. SPLEEN: Unremarkable. No splenomegaly. ADRENALS: Unremarkable. No mass. KIDNEYS AND URETERS: Bilateral hydronephrosis as well as right hydroureter and bilateral urothelial thickening and enhancements. Symmetrical renal enhancement pattern. No definitive obstructive stone. STOMACH AND BOWEL: Moderate stool burden. No obstruction. No mucosal thickening. PELVIS: APPENDIX: The appendix is seen and is within normal limits. BLADDER: Bladder wall thickening. REPRODUCTIVE: Heterogenous lower uterine segment/cervix. ABDOMEN and PELVIS: INTRAPERITONEAL SPACE: Unremarkable. No free air. No significant fluid collection. BONES/JOINTS: No acute fracture. No dislocation. SOFT TISSUES: Unremarkable. VASCULATURE: Unremarkable. No abdominal aortic aneurysm. LYMPH NODES: Unremarkable. No enlarged lymph nodes. IMPRESSION: 1. Bilateral hydronephrosis as well as right hydroureter and bilateral urothelial thic kening and enhancement. Associated bladder wall thickening. Finding concerning for infectious proce ss. Correlate with urinalysis. 2. Moderate stool burden. Correlate for constipation. 3. Heterogenous lower uterine segment/cervix. Electronically signed by: Joseph Hughes DO 02/11/2022 12:05 AM CDT Due to temporary technical issues with the PACS/Fluency reporting system, reports are being signed by the in house radiologists without review as a courtesy to insure prompt reporting. The interpreting radiologist is fully responsible for the content of the report.
== END 2022-02-11 01:02 | disposition home or self-care (01) ==
LOC: ER 21:23
DX: N30.00 Acute cystitis without hematuria (principal)
CPT/HCPCS: 96365; 85025; 36415; 83690; 80053; 74177; 96375; 99284; Q9967; 81003; 81015

== ENCOUNTER 2022-04-13 08:18 | Emergency (ER) | payer OTHER ==
--- OUTSIDE RECORDS SUMMARY | 2022-04-13 08:24 | XMS REPORT | Continuity of Care Document ---
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 Medications This patient has no known medications. Procedures This patient has no known procedures. Encounters Start End Encounter Admission Attending Care Care Encounter Source Date/Time Date/Time Type Type Clinicians Facility Department ID 2022-04-13 Outpatient [id number] Memoria 08:23:49 [id number] Jimmy [id number] 2022-04-03 Outpatient [id number] Memoria 11:23:33 [id number] Jimmy [id number] 2019-08-14 Inpatient MHNW MHNW [id number] MHN W 17:25:00 2019-08-06 2019-08-06 Outpatient OBGYN [facility] 2002 [id number] MH 13:29:00 13:29:00 Care OBGYN Care 2019-08-03 2019-08-03 Emergency E MHNW MHNW [id number] MHNW 21:28:00 21:28:00 2019-07-14 2019-07-14 Emergency E MHNW MHNW 0018 MHNW 14:10:00 14:10:00 2019-07-07 2019-07-07 Emergency E MHNW MHNW 0011 MHNW 02:14:00 02:14:00 2019-05-31 2019-05-31 Outpatient OBGYN [facility]YN Care 1972 [id number] MH 15:12:00 15:12:00 Care OBGYN Care 2019-04-30 2019-04-30 Emergency E MHNW MHNW [id number] MHNW 00:20:00 00:20:00 2019-04-19 2019-04-19 Outpatient MHNW MHNW [id number] MHNW 13:08:00 13:08:00 2018-10-11 2018-10-11 Emergency E MHCY MHCY 7502 MHCY 20:54:00 20:54:00 Results This patient has no known results.
[2022-04-13 08:52] LABS: Urine Blood 2+ (Negative); Urine Glucose Negative (Negative); Urine Protein Trace (Negative); Urine Specific Gravity >=1.030 (1.005-1.030)
[2022-04-13 09:30] LABS: Absolute Lymphocytes (CBC) 1.5 K/uL (0.7-4.9); Lymphocytes % 29.2 % (15.3-44.8); MCV 71.7 fL (80-100); MPV 7.9 fL (7.6-11.3); RBC Red Blood Cell Count 4.88 M/uL (3.86-4.86)
[2022-04-13] MEDS ORDERED: CEFTRIAXONE 1000 MG/VIAL ONE (09:51)
[2022-04-13] MEDS ORDERED: NA CHLORIDE 0.9% 1,000 ML ONE (09:51)
[2022-04-13 10:05] LABS: Urine Bacteria 20-50 /HPF (<20); Urine Crystals Unidentified Few /HPF (None Seen); Urine Mucus 4+ /HPF (None Seen)
--- NOTE | 2022-04-13 10:49 | RAD REPORT ---
EXAM DESCRIPTION: US - Transvaginal OB - 04/13/2022 10:15 am CLINICAL HISTORY: VAGINAL BLEEDING COMPARISON: Transvaginal OB dated 04/03/2022 FINDINGS: A single gestational sac is seen within the uterus. The shape of the sac is somewhat oblon g. There is no evidence of a yolk sac or embryo yet identified. The maternal adnexa and ovaries are within normal limits. Normal Doppler blood flow was demonstrated to both ovaries. IMPRESSION: [place] shaped gestational sac is seen in the fundal endometrium. No yolk sac or embryo y et seen. The findings likely indicate early IUP although blighted ovum can have a similar appearance. Recommend serial HCG measurements and follow-up ultrasound in 7 days.
[2022-04-13 11:01] LABS: Potassium 3.7 mmol/L (3.5-5.1)
--- NOTE | 2022-04-13 11:22 | ER ---
[facility] Name: Irma López Age: 27 yrs Sex: Female : 1995 Arrival Date: 04/13/2022 Time: 08:24 Bed 14 Private MD: Diagnosis: Threatened ;UTI/ Urinary tract infection, site not specified Presentation: 04/13 08:39 Chief complaint: Patient states: light pink vaginal spotting that began 3 days ago. Pt ss is concerned because now the bleeding is more red in color. Denies cramping/ pain. Coronavirus screen: Client denies travel out of the [place] in the last 14 days. Ebola Screen: Patient denies exposure to infectious person. Patient denies travel to an Ebola-affected area in the 21 days before illness onset. Initial Sepsis Screen: Does the patient meet any 2 criteria? No. Patient's initial sepsis screen is negative. Does the patient have a suspected source of infection? No. Patient's initial sepsis screen is negative. Risk Assessment: Do you want to hurt yourself or someone else? Patient reports no desire to harm self or others. 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 - Social history:: Smoking status: Patient denies any tobacco usage or history of. Screenin:00 Abuse screen: Denies threats or abuse. Denies injuries from another. Nutritional ko1 screening: No deficits noted. Tuberculosis screening: No symptoms or risk factors identified. Fall Risk None identified. Assessment: 09:00 Obstetrical Assessment: General assessment: awake and alert, skin warm and dry, ko1 respirations even and unlabored, Patient reports. General: Appears in no apparent distress. comfortable. General: Behavior is calm, cooperative, appropriate for age. Pain: Denies pain. Neuro: No deficits noted. Cardiovascular: No deficits noted. Respiratory: No deficits noted. GI: No deficits noted. : No deficits noted. EENT:. Derm: No deficits noted. Musculoskeletal: No deficits noted. Vital Signs: 08:39 BP 114 / 67; Pulse 78; Resp 14; Temp 98.6(O); Pulse Ox 100% on R/A; Weight 52.62 kg; ss Height 5 ft. 1 in. (154.94 cm); Pain 0/10; 10:30 BP 118 / 72; Pulse 72; ko1 11:27 BP 112 / 68; Pulse 68; Pulse Ox 100% ; ko1 08:39 Body Mass Index 21.92 (52.62 kg, 154.94 cm) ED Course: 08:24 Patient arrived in ED. rg4 08:25 Alvarado Vazquez NP is PHCP. pm1 08:25 Eric Clark MD is Attending Physician. pm1 08:41 Elke Ham, PURNIMA is Primary Nurse. ko1 08:42 Triage completed. ss 08:42 Arm band placed on left wrist. ss 09:00 Patient has correct armband on for positive identification. Bed in low position. Call ko1 light in reach. Side rails up X 1. 09:00 Inserted saline lock: 20 gauge in left antecubital area, using aseptic technique. Blood ko1 collected. 09:05 Abo/rh Typing Sent. ko1 09:05 Basic Metabolic Panel Sent. ko1 09:05 CBC with Diff Sent. ko1 09:05 Quantitative Hcg Sent. ko1 09:06 Urine Microscopic Only Sent. ko1 10:16 US Transvaginal Ob In Process Unspecified. EDMS 10:27 Urine Culture Sent. ko1 11:27 No provider procedures requiring assistance completed. IV discontinued, intact, ko1 bleeding controlled, No redness/swelling at site. Pressure dressing applied. Administered Medications: 10:27 Drug: NS 0.9% 1000 ml Route: IV; Rate: 1000 ml; Site: left antecubital; ko1 10:27 Drug: Rocephin (cefTRIAXone) 1 grams Route: IV; Rate: calculated rate; Site: left ko1 antecubital; Medication: 11:27 VIS not applicable for this client. ko1 Intake: 10:30 PO: 120ml (Water); IV: 1000ml (IV Fluid); Total: 1120ml. ko1 Outcome: 11:22 Discharge ordered by . pm1 11:27 Discharged to home ambulatory. ko1 11:27 Condition: stable 11:27 Discharge instructions given to patient, Instructed on discharge instructions, follow up and referral plans. medication usage, Demonstrated understanding of instructions, follow-up care, medications, Prescriptions given X 1. 11:35 Patient left the ED. ko1 Addendum: 04/15/2022 12:06 Addendum: Culture Results: Positive urine culture. Bacteria is resistant to, has s s intermediate sensitivity, or is not tested against prescribed antibiotics. Report given to EVANGELIST for further evaluation and then to conference center coordinator for follow up with patient. Phone call Attempt #1 Antibiotics has intermediate sensitivity. Attempted to call patient. No answer. Unable to leave VM as VM box is full. Will attempt to call again shortly. Signatures: Dispatcher [employer] EDWV Janelle Rodriguez RN RN ss Alvarado Vazquez, NICKER NICKER pm1 Catherine Cavanaugh rg4 Elke Ham RN RN ko1 Corrections: (The following items were deleted from the chart) 04/13 08:44 08:42 Home Meds: None; [facility]
--- NOTE | 2022-04-13 11:22 | EDPHYS ---
Physician Documentation [facility] Name: Irma López Age: 27 yrs Sex: Female : 1995 Arrival Date: 04/13/2022 Time: 08:24 Bed 14 Private MD: ED Physician Eric Clark HPI: 04/13 09:02 This 27 yrs old Black Female presents to ER via Ambulatory with complaints of Vaginal pm1 Bleeding, + Preg <12wks. 09:02 The patient presents to the emergency department with vaginal bleeding, with clots, pm1 reports using 2 pads or tampons per day, Started as spotting now heavier. The estimated gestational age is 8 weeks. course: care: private OB physician, the patient's last check was April 03, 2022, Leakage of Fluid: none appreciated. Previous pregnancies: in previous pregnancies patient has had no complications. Associated signs and symptoms: Pertinent negatives: abdominal pain, dysuria, fever. The patient has experienced a previous episode, approximately 2 weeks ago, seen in the ER for similar symptoms. The patient has been recently seen by a physician: an digital media manager specialist, 10 day(s) ago. 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 - Social history:: Smoking status: Patient denies any tobacco usage or history of. ROS: 09:02 Constitutional: Negative for fever, chills, and weight loss, Cardiovascular: Negative pm1 for chest pain, palpitations, and edema, Respiratory: Negative for shortness of breath, cough, wheezing, and pleuritic chest pain, Abdomen/GI: Negative for abdominal pain, nausea, vomiting, diarrhea, and constipation. 09:02 MS/Extremity: Negative for injury and deformity, Skin: Negative for injury, rash, and discoloration, Neuro: Negative for headache, weakness, numbness, tingling, and seizure. 09:02 : Positive for vaginal bleeding, Negative for urinary symptoms, flank pain. 09:02 All other systems are negative. Exam: 09:02 Constitutional: This is a well developed, well nourished patient who is awake, alert, pm1 and in no acute distress. Head/Face: Normocephalic, atraumatic. 09:02 Back: No spinal tenderness. No costovertebral tenderness. Full range of motion. Skin: Warm, dry with normal turgor. Normal color with no rashes, no lesions, and no evidence of cellulitis. MS/ Extremity: Pulses equal, no cyanosis. Neurovascular intact. Full, normal range of motion. 09:02 Eyes: Exam is negative for acute changes, Periorbital structures: no acute changes, Extraocular movements: no acute changes, Conjunctiva: no acute changes. 09:02 ENT: Exam is negative for acute changes, Mouth: no acute changes, Lips: normal, moist, Oral mucosa: normal, pink and intact, moist. 09:02 Cardiovascular: Exam negative for acute changes, Rate: normal, Rhythm: regular, Pulses: no pulse deficits are appreciated. 09:02 Respiratory: Exam negative for acute changes, respiratory distress, shortness of breath. 09:02 Abdomen/GI: Inspection: abdomen appears normal, Bowel sounds: normal, in all quadrants, Palpation: abdomen is soft and non-tender, in all quadrants. 09:02 Neuro: Exam negative for acute changes, Orientation: is normal, Mentation: is normal, Motor: is normal, moves all fours. Vital Signs: 08:39 BP 114 / 67; Pulse 78; Resp 14; Temp 98.6(O); Pulse Ox 100% on R/A; Weight 52.62 kg; ss Height 5 ft. 1 in. (154.94 cm); Pain 0/10; 10:30 BP 118 / 72; Pulse 72; ko1 11:27 BP 112 / 68; Pulse 68; Pulse Ox 100% ; ko1 08:39 Body Mass Index 21.92 (52.62 kg, 154.94 cm) ss MDM: 08:33 Patient medically screened. pm1 11:19 ED course: Discussed findings with the patient and she has an appointment with her OB pm1 on , 2 days from now. Gave patient copy of her work up. Informed she has DX: threatened miscarriage and UTI. Given Rocephin in the ER and will prescribe Macrobid. Patient with trace yeast on urine micro and discussed with attending, recommended yogurt and follow up with OB . 11:19 Data reviewed: vital signs. Data interpreted: Pulse oximetry: on room air is 100 %. pm1 Interpretation: normal. 11:19 Counseling: I had a detailed discussion with the patient and/or guardian regarding: the pm1 historical points, exam findings, and any diagnostic results supporting the discharge/admit diagnosis, lab results, radiology results, the need for outpatient follow up, an OB/Gyne specialist, to return to the emergency department if symptoms worsen or persist or if there are any questions or concerns that arise at home. 04/13 08:41 Order name: Abo/rh Typing; Complete Time: 09:51 pm1 04/13 08:41 Order name: Basic Metabolic Panel; Complete Time: 11:13 pm1 04/13 08:41 Order name: CBC with Diff; Complete Time: 09:35 pm1 04/13 08:41 Order name: Quantitative Hcg; Complete Time: 11:13 pm1 04/13 08:52 Order name: Urine Dipstick-Ancillary; Complete Time: 08:57 EDMS 04/13 08:57 Order name: Urine Microscopic Only; Complete Time: 10:21 pm1 04/13 08:41 Order name: IV Saline Lock; Complete Time: 10:27 pm1 04/13 08:41 Order name: Labs collected and sent; Complete Time: 09:05 pm1 04/13 08:41 Order name: NPO; Complete Time: 08:46 pm1 04/13 09:02 Order name: US Transvaginal Ob; Complete Time: 10:52 pm1 04/13 10:13 Order name: Urine Culture EDVT 04/13 08:41 Order name: Urine Dipstick-Ancillary (obtain specimen); Complete Time: 08:52 pm1 04/13 08:41 Order name: Urine Test (obtain specimen); Complete Time: 08:52 pm1 Administered Medications: : Drug: NS 0.9% 1000 ml Route: IV; Rate: 1000 ml; Site: left antecubital; ko1 10:27 Drug: Rocephin (cefTRIAXone) 1 grams Route: IV; Rate: calculated rate; Site: left ko1 antecubital; Disposition Summary: 04/13/22 11:22 Discharge Ordered Location: Home pm1 Problem: new pm1 Symptoms: have improved pm1 Condition: Stable pm1 Diagnosis - Threatened pm1 - UTI/ Urinary tract infection, site not specified pm1 Followup: pm1 - With: Emergency Department - When: As needed - Reason: Worsening of condition Followup: pm1 - With: Private Physician - When: 2 - 3 days - Reason: Recheck today's complaints, Continuance of care, Re-evaluation by your physician Discharge Instructions: - Discharge Summary Sheet pm1 - Threatened Miscarriage pm1 - and Urinary Tract Infection pm1 Forms: - Medication Reconciliation Form pm1 - Thank You Letter pm1 - Antibiotic Education pm1 - Prescription Opioid Use pm1 Prescriptions: - Macrobid 100 mg Oral Capsule - take 1 capsule by ORAL route every 12 hours for 7 days; 14 capsule; Refills: 0, pm1 Product Selection Permitted Signatures: Dispatcher [employer] EDMS Janelle Rodriguez RN RN ss Alvarado Vazquez, [employer] pm1 Elke Ham RN RN ko1 Corrections: (The following items were deleted from the chart) 08:44 08:42 Home Meds: None; [facility]
[2022-04-13 11:56] VITALS: TEMP 98.6; O2SAT 100
[2022-04-13 11:58] VITALS: BP 112/68
== END 2022-04-13 11:35 | disposition home or self-care (01) ==
LOC: ER 08:18
DX: O20.0 Threatened abortion (principal); O23.41 Unspecified infection of urinary tract in pregnancy, first trimester; N39.0 Urinary tract infection, site not specified; Z3A.08 8 weeks gestation of pregnancy
CPT/HCPCS: 87088; 85025; 87086; 80048; 36415; 86900; 86901; 84702; 87077; 87186; 76817; 96374; 99284; J7030; 81003; 81015

== ENCOUNTER 2022-06-14 14:17 | Emergency (ER) | payer OTHER ==
--- OUTSIDE RECORDS SUMMARY | 2022-06-14 14:22 | XMS REPORT | Continuity of Care Document ---
:1995 Author Organization 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 Medications This patient has no known medications. Procedures This patient has no known procedures. Encounters Start End Encounter Admission Attending Care Care Encounter Source Date/Time Date/Time Type Type Clinicians Facility Department ID 2022-06-14 Outpatient [id number] Memoria 14:22:22 [id number] Jimmy [id number] 2022-04-13 Outpatient [id number] [id number] Memoria 08:23:49 [id number] Jimmy [id number] 2022-04-03 Outpatient [id number] Memoria 11:23:33 [id number] [place] [id number] 2019-08-14 Inpatient MHNW MHNW [id number] MHN W 17:25:00 2019-08-06 2019-08-06 Outpatient OBGYN OBGYN Care 2002 22 MH 13:29:00 13:29:00 Care OBGYN Care 2019-08-03 2019-08-03 Emergency E MHNW MHNW [id number] MHNW 21:28:00 21:28:00 2019-07-14 2019-07-14 Emergency E MHNW MHNW 0018 MHNW 14:10:00 14:10:00 2019-07-07 2019-07-07 Emergency E MHNW MHNW 0011 MHNW 02:14:00 02:14:00 2019-05-31 2019-05-31 Outpatient OBGYN OBGYN Care [facility] 70 15:12:00 15:12:00 Care OBGYN Care 2019-04-30 2019-04-30 Emergency E MHNW MHNW [id number] MHNW 00:20:00 00:20:00 2019-04-19 2019-04-19 Outpatient MHNW MHNW [id number] MHNW 13:08:00 13:08:00 2018-10-11 2018-10-11 Emergency E MHCY MHCY 7502 MHCY 20:54:00 20:54:00 Results This patient has no known results.
--- NOTE | 2022-06-14 15:12 | ER ---
Nurse's Notes [facility] Name: Irma López Age: 27 yrs Sex: Female : 1995 Arrival Date: 06/14/2022 Time: 14:18 Bed 12 Private MD: Diagnosis: Contact with and (suspected) exposure to infections with a predominantly sexual mode of transmission Presentation: 06/14 14:34 Chief complaint: Patient states: my sexual partner told me they have chlamydia so i jh5 probably have it too; we dont use protection. Coronavirus screen: Vaccine status: Patient reports being unvaccinated. Client denies travel out of the [place] in the last 14 days. Ebola Screen: Patient negative for fever greater than or equal to 101.5 degrees Fahrenheit, and additional compatible Ebola Virus Disease symptoms Patient denies exposure to infectious person. Patient denies travel to an Ebola-affected area in the 21 days before illness onset. Initial Sepsis Screen: Does the patient meet any 2 criteria? No. Patient's initial sepsis screen is negative. Does the patient have a suspected source of infection? No. Patient's initial sepsis screen is negative. Risk Assessment: Do you want to hurt yourself or someone else? Patient reports no desire to harm self or others. 14:34 Method Of Arrival: Ambulatory [facility] 14:34 Acuity: TAZ 4 [facility] Triage Assessment: 14:36 General: Appears in no apparent distress. slender, well groomed, well developed, [facility] Behavior is calm, cooperative, appropriate for age. Pain: Denies pain. 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 - Social history:: Smoking status: Patient denies any tobacco usage or history of. Screenin:14 [facility] ED Fall Risk Assessment (Adult) History of falling in the last 3 months, jl7 including since admission No falls in past 3 months (0 pts). Humpty Dumpty Scale Fall Assessment Tool (age< 18yrs) Gender Female (1 pt). Abuse screen: Denies threats or abuse. Denies injuries from another. Nutritional screening: No deficits noted. Tuberculosis screening: No symptoms or risk factors identified. Fall Risk Fall in past 12 months (25 points). No secondary diagnosis (0 pts). No IV (0 pts). Ambulatory Aid- None/Bed Rest/Nurse Assist (0 pts). Gait- Normal/Bed Rest/Wheelchair (0 pts) Mental Status- Oriented to own ability (0 pts). Total Garcia Fall Scale indicates No Risk (0-24 pts). Assessment: 16:14 Reassessment: Pt will be discharged after shot time. jl7 Vital Signs: 14:34 BP 106 / 59; Pulse 64; Resp 16; Temp 99.2; Pulse Ox 100% ; Weight 52.16 kg; Height 5 5 ft. 1 in. (154.94 cm); Pain 0/10; 16:27 BP 112 / 78; Pulse 55; Resp 15; Pulse Ox 99% ; jl7 14:34 Body Mass Index 21.73 (52.16 kg, 154.94 cm) 5 ED Course: 14:18 Patient arrived in ED. as 14:19 Susan Hardin FNP-C [facility] 14:19 Waqas Bonilla DO is Attending Physician. snw 14:36 Triage completed. 5 14:36 Arm band placed on right wrist. 5 16:14 Patient has correct armband on for positive identification. jl7 16:14 No provider procedures requiring assistance completed. Patient did not have IV access jl7 during this emergency room visit. Administered Medications: 16:13 Drug: Zithromax (azithromycin) 1 grams Route: PO; jl7 16:13 Drug: Rocephin (cefTRIAXone) 500 mg Route: IM; Site: right ventrogluteal; jl7 16:13 Drug: Flagyl (metroNIDAZOLE) 2 grams Route: PO; jl7 Medication: 16:14 VIS not applicable for this client. jl7 Outcome: 15:11 Discharge ordered by MD. snw 16:27 Discharged to home ambulatory. jl7 16:27 Condition: stable 16:27 Discharge instructions given to patient, Instructed on discharge instructions, follow up and referral plans. Demonstrated understanding of instructions, follow-up care. 16:28 Patient left the ED. jl7 Signatures: Susan Hardin FNP-C PLUG SORTER-CsnSandra Cox Jahala, RN RN jl7 Olu, [place], RN RN jh5
--- NOTE | 2022-06-14 15:12 | EDPHYS ---
Physician Documentation [facility] Name: Irma López Age: 27 yrs Sex: Female : 1995 Arrival Date: 06/14/2022 Time: 14:18 Bed 12 Private MD: ED Physician Waqas Bonilla HPI: 06/14 14:39 This 27 yrs old Black Female presents to ER via Ambulatory with complaints of STD snw Exposure. 14:39 Onset: The symptoms/episode began/occurred acutely. Associated signs and symptoms: The snw patient has no apparent associated signs or symptoms. The patient has not experienced similar symptoms in the past. The patient has not recently seen a physician. 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 - Social history:: Smoking status: Patient denies any tobacco usage or history of. ROS: 14:39 Eyes: Negative for injury, pain, redness, and discharge, ENT: Negative for injury, snw pain, and discharge, Neck: Negative for injury, pain, and swelling, Cardiovascular: Negative for chest pain, palpitations, and edema, Respiratory: Negative for shortness of breath, cough, wheezing, and pleuritic chest pain, Abdomen/GI: Negative for abdominal pain, nausea, vomiting, diarrhea, and constipation, Back: Negative for injury and pain, : Negative for injury, bleeding, discharge, and swelling, MS/Extremity: Negative for injury and deformity, Skin: Negative for injury, rash, and discoloration, Neuro: Negative for headache, weakness, numbness, tingling, and seizure. 14:39 Constitutional: Positive for exposure to STI (chlamydia) per pt report. Exam: 14:38 Constitutional: This is a well developed, well nourished patient who is awake, alert, snw and in no acute distress. Head/Face: Normocephalic, atraumatic. Eyes: Pupils equal round and reactive to light, extra-ocular motions intact. Lids and lashes normal. Conjunctiva and sclera are non-icteric and not injected. Cornea within normal limits. Periorbital areas with no swelling, redness, or edema. Neck: Trachea midline, no thyromegaly or masses palpated, and no cervical lymphadenopathy. Supple, full range of motion without nuchal rigidity, or vertebral point tenderness. No Meningismus. Chest/axilla: Normal chest wall appearance and motion. Nontender with no deformity. No lesions are appreciated. Cardiovascular: Regular rate and rhythm with a normal S1 and S2. No gallops, murmurs, or rubs. Normal PMI, no JVD. No pulse deficits. Respiratory: Lungs have equal breath sounds bilaterally, clear to auscultation and percussion. No rales, rhonchi or wheezes noted. No increased work of breathing, no retractions or nasal flaring. Skin: Warm, dry with normal turgor. Normal color with no rashes, no lesions, and no evidence of cellulitis. MS/ Extremity: Pulses equal, no cyanosis. Neurovascular intact. Full, normal range of motion. Neuro: Awake and alert, GCS 15, oriented to person, place, time, and situation. Cranial nerves II-XII grossly intact. Motor strength 5/5 in all extremities. Sensory grossly intact. Cerebellar exam normal. Normal gait. Psych: Awake, alert, with orientation to person, place and time. Behavior, mood, and affect are within normal limits. Vital Signs: 14:34 BP 106 / 59; Pulse 64; Resp 16; Temp 99.2; Pulse Ox 100% ; Weight 52.16 kg; Height 5 jh5 ft. 1 in. (154.94 cm); Pain 0/10; 16:27 BP 112 / 78; Pulse 55; Resp 15; Pulse Ox 99% ; jl7 14:34 Body Mass Index 21.73 (52.16 kg, 154.94 cm) 5 MDM: 14:37 Patient medically screened. snw 15:14 Data reviewed: vital signs, nurses notes. Data interpreted: Pulse oximetry: on room air snw is 100 %. Interpretation: normal. Counseling: I had a detailed discussion with the patient and/or guardian regarding: the historical points, exam findings, and any diagnostic results supporting the discharge/admit diagnosis, the need for outpatient follow up, to return to the emergency department if symptoms worsen or persist or if there are any questions or concerns that arise at home. Special discussion: Based on the history and exam findings, there is no indication for further emergent testing or inpatient evaluation. I discussed with the patient/guardian the need to see the primary care provider for further evaluation of the symptoms. 06/14 14:37 Order name: Urine Test (obtain specimen); Complete Time: 15:32 snw Administered Medications: 16:13 Drug: Zithromax (azithromycin) 1 grams Route: PO; jl7 16:13 Drug: Rocephin (cefTRIAXone) 500 mg Route: IM; Site: right ventrogluteal; jl7 16:13 Drug: Flagyl (metroNIDAZOLE) 2 grams Route: PO; jl7 Disposition: 22:02 Co-signature as Attending Physician, Waqas Bonilla DO I was immediately available on-site ms3 in the Emergency Department for consultation in the care of the patient. . Disposition Summary: 06/14/22 15:11 Discharge Ordered Location: Home snw Condition: Stable snw Diagnosis - Contact with and (suspected) exposure to infections with a predominantly sexual snw mode of transmission Followup: snw - With: Emergency Department - When: As needed - Reason: Worsening of condition Followup: snw - With: Private Physician - When: 1 week - Reason: Recheck today's complaints, Continuance of care, Re-evaluation by your physician Discharge Instructions: - Discharge Summary Sheet snw - Safe Sex snw - Preventing Sexually Transmitted Infections, Adult snw Forms: - Medication Reconciliation Form snw - Thank You Letter snw - Antibiotic Education snw - Prescription Opioid Use snw Signatures: Susan Hardin FNP-C LEAD CUSTOMER SERVICE REPRESENTATIVE-Csnw Anita Isabel RN RN jl7 Waqas Bonilla DO DO ms3 China Raines RN RN jh5
[2022-06-14] MEDS ORDERED: CEFTRIAXONE 1000 MG/VIAL ONE (15:44)
[2022-06-14] MEDS ORDERED: metroNIDAZOLE 500 MG TABLET ONE (15:45)
[2022-06-14] MEDS ORDERED: AZITHROMYCIN 250 MG TAB ONE (15:45)
[2022-06-14] MEDS ORDERED: CEFTRIAXONE 500 MG/VIAL ONE (16:04)
[2022-06-14] MEDS ORDERED: WATER FOR INJ,STERILE 10 ML ONE (16:04)
[2022-06-14 16:47] VITALS: TEMP 99.2
[2022-06-14 16:48] VITALS: BP 112/78; O2SAT 99
== END 2022-06-14 16:28 | disposition home or self-care (01) ==
LOC: ER 14:17
DX: Z20.2 Contact with and (suspected) exposure to infections with a predominantly sexual mode of transmission (principal)
CPT/HCPCS: Q0144; J0696; 96372; 99283

== ENCOUNTER 2022-08-14 21:20 | Emergency (ER) | payer OTHER ==
--- OUTSIDE RECORDS SUMMARY | 2022-08-14 21:23 | XMS REPORT | Continuity of Care Document ---
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 Medications This patient has no known medications. Procedures This patient has no known procedures. Encounters Start End Encounter Admission Attending Care Care Encounter Source Date/Time Date/Time Type Type Clinicians Facility Department ID 2022-08-14 Outpatient [id number] Memoria 21:23:03 [id number] Jimmy [id number] 2022-06-14 Outpatient [id number] Memoria 14:22:22 [id number] Jimmy [id number] 2022-04-13 Outpatient [id number] Memoria 08:23:49 [id number] [place] [id number] 2022-04-03 Outpatient [id number] Memoria 11:23:33 [id number] Jimmy [id number] 2019-08-14 Inpatient [facility] [id number] [...]
--- NOTE | 2022-08-14 21:52 | EDPHYS ---
Physician Documentation [facility] Name: Irma López Age: 27 yrs Sex: Female : 1995 Arrival Date: 08/14/2022 Time: 21:20 Bed 12 Private MD: ED Physician Lydia Adame HPI: 08/14 22:04 This 27 yrs old Black Female presents to ER via Unassigned with complaints of STD kb Exposure. 22:04 The patient presents with a possible exposure to a sexually transmitted disease, kb chlamydia. Onset: The symptoms/episode began/occurred today. Modifying factors: The symptoms are alleviated by nothing, the symptoms are aggravated by nothing. Associated signs and symptoms: The patient has no apparent associated signs or symptoms. The patient is sexually active, reportedly has a single partner, does not use protection during intercourse. The patient has not experienced similar symptoms in the past. The patient has not recently seen a physician. 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 - Social history:: Smoking status: Patient denies any tobacco usage or history of. ROS: 22:04 Constitutional: Negative for fever, chills, and weight loss. kb 22:04 All other systems are negative. Exam: 22:04 Constitutional: This is a well developed, well nourished patient who is awake, alert, kb and in no acute distress. Head/Face: Normocephalic, atraumatic. ENT: Moist Mucous membranes Cardiovascular: Regular rate and rhythm with a normal S1 and S2. No gallops, murmurs, or rubs. No pulse deficits. Respiratory: Respirations even and unlabored. No increased work of breathing. Talking in full sentences Skin: Warm, dry with normal turgor. Normal color. MS/ Extremity: Pulses equal, no cyanosis. Neurovascular intact. Full, normal range of motion. Neuro: Awake and alert, GCS 15, oriented to person, place, time, and situation. Moves all extremities. Normal gait. Vital Signs: 22:08 BP 119 / 78; Pulse 67; Resp 18; Temp 96.7; Pulse Ox 100% ; Weight 53.52 kg; Height 5 tw5 ft. 0 in. (152.40 cm); Pain 0/10; 22:08 Body Mass Index 23.05 (53.52 kg, 152.40 cm) tw5 MDM: 21:45 Patient medically screened. kb 22:03 Differential diagnosis: Chlamydia, gonorrhea. Data reviewed: vital signs, nurses notes. kb Counseling: I had a detailed discussion with the patient and/or guardian regarding: the historical points, exam findings, and any diagnostic results supporting the discharge/admit diagnosis, the need for outpatient follow up, an OB/Gyne specialist, to return to the emergency department if symptoms worsen or persist or if there are any questions or concerns that arise at home. ED course: Patient is a 27-year-old female with no medical history who presents for STD exposure and treatment. States she was told by a sexual partner that he had chlamydia and that she needed to be treated so she came in for the treatment. Patient is asymptomatic. Physical exam unremarkable.. Administered Medications: 21:49 CANCELLED (Duplicate Order): Zithromax (azithromycin) 500 mg PO once kb 21:59 Drug: Rocephin (cefTRIAXone) 500 mg Route: IM; Site: left ventrogluteal; tw5 22:08 Follow up: Response: No adverse reaction tw5 21:59 Drug: Zithromax (azithromycin) 1 grams Route: PO; tw5 22:08 Follow up: Response: No adverse reaction tw5 Disposition: 08/15 06:32 I reviewed the patient's care provided by the Advanced Practice Provider and agree with sd2 the diagnosis and treatment plan. Disposition Summary: 08/14/22 21:51 Discharge Ordered Location: Home kb Condition: Stable kb Diagnosis - Unspecified sexually transmitted disease kb Followup: kb - With: Emergency Department - When: As needed - Reason: Worsening of condition Followup: kb - With: Private Physician - When: 2 - 3 days - Reason: Recheck today's complaints, Continuance of care, Re-evaluation by your physician Discharge Instructions: - Discharge Summary Sheet kb - Preventing Sexually Transmitted Infections, Adult kb Forms: - Medication Reconciliation Form kb - Thank You Letter kb - Antibiotic Education kb - Prescription Opioid Use kb Signatures: Lori Peace FNP-C CATHERINE-Megan Sheets tw5 Lydia Adame MD MD sd2 Corrections: (The following items were deleted from the chart) 08/14 21:49 21:49 Zithromax (azithromycin) 500 mg PO once ordered. kb kb
[2022-08-14] MEDS ORDERED: CEFTRIAXONE 500 MG/VIAL ONE (21:57)
[2022-08-14] MEDS ORDERED: AZITHROMYCIN 250 MG TAB ONE (21:57)
[2022-08-14] MEDS ORDERED: LIDOCAINE 1% MPF 2 ML AMPULE ONE (21:57)
--- NOTE | 2022-08-14 22:11 | ER ---
Nurse's Notes [facility] Name: Irma López Age: 27 yrs Sex: Female : 1995 Arrival Date: 08/14/2022 Time: 21:20 Bed 12 Private MD: Diagnosis: Unspecified sexually transmitted disease Presentation: 08/14 22:08 Chief complaint: Patient states: "I was told by someone that they had chlamydia.". tw5 Coronavirus screen: Vaccine status: Patient reports being unvaccinated. Ebola Screen: Patient negative for fever greater than or equal to 101.5 degrees Fahrenheit, and additional compatible Ebola Virus Disease symptoms Patient denies exposure to infectious person. Patient denies travel to an Ebola-affected area in the 21 days before illness onset. Initial Sepsis Screen: Does the patient meet any 2 criteria? No. Patient's initial sepsis screen is negative. Does the patient have a suspected source of infection? No. Patient's initial sepsis screen is negative. Risk Assessment: Do you want to hurt yourself or someone else? Patient reports no desire to harm self or others. Onset of symptoms is unknown. 22:08 Method Of Arrival: Ambulatory tw5 22:08 Acuity: TAZ 5 tw5 Triage Assessment: 22:09 General: Appears in no apparent distress. Behavior is calm, cooperative, appropriate tw5 for age. Pain: Denies pain. 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 - Social history:: Smoking status: Patient denies any tobacco usage or history of. Screenin:09 [facility] ED Fall Risk Assessment (Adult) History of falling in the last 3 months, tw5 including since admission. Abuse screen: Denies threats or abuse. Denies injuries from another. Nutritional screening: No deficits noted. 22:10 Tuberculosis screening: No symptoms or risk factors identified. tw5 Assessment: 22:09 General: Appears in no apparent distress. Behavior is calm, cooperative, appropriate tw5 for age. Neuro: No deficits noted. Vital Signs: 22:08 BP 119 / 78; Pulse 67; Resp 18; Temp 96.7; Pulse Ox 100% ; Weight 53.52 kg; Height 5 tw5 ft. 0 in. (152.40 cm); Pain 0/10; 22:08 Body Mass Index 23.05 (53.52 kg, 152.40 cm) tw5 ED Course: 21:20 Patient arrived in ED. jj6 21:40 [facility] Peace [facility]-C [facility] kb 21:40 Lydia Adame MD is Attending Physician. kb 21:51 Megan Bryant is Primary Nurse. tw5 22: Triage completed. tw5 22: Arm band placed on. tw5 22:09 Patient has correct armband on for positive identification. tw5 22: No provider procedures requiring assistance completed. Patient did not have IV access tw5 during this emergency room visit. Administered Medications: 21:49 CANCELLED (Duplicate Order): Zithromax (azithromycin) 500 mg PO once kb 21:59 Drug: Rocephin (cefTRIAXone) 500 mg Route: IM; Site: left ventrogluteal; tw5 22:08 Follow up: Response: No adverse reaction tw5 21:59 Drug: Zithromax (azithromycin) 1 grams Route: PO; tw5 22:08 Follow up: Response: No adverse reaction tw5 Medication: 22:09 VIS not applicable for this client. tw5 Outcome: 21:51 Discharge ordered by . kb 22:09 Discharged to home ambulatory. tw5 22:09 Condition: good 22:09 Discharge instructions given to patient, Instructed on discharge instructions, follow up and referral plans. Demonstrated understanding of instructions, follow-up care, Prescriptions given X 1. 22:11 Patient left the ED. tw5 Signatures: Lori Peace FNP-C FNP-Ckb Wood, Tiffany tw5 Susy Cancino jj6
[2022-08-14 23:01] VITALS: BP 119/78; TEMP 96.7; O2SAT 100
== END 2022-08-14 22:11 | disposition home or self-care (01) ==
LOC: ER 21:20
DX: A64 Unspecified sexually transmitted disease (principal)
CPT/HCPCS: 96372; 99283; J0696

== ENCOUNTER 2023-06-06 15:19 | Emergency (ER) | payer OTHER ==
--- NOTE | 2023-06-06 18:24 | RAD REPORT ---
EXAM DESCRIPTION: US - Transvaginal OB - 06/06/2023 5:10 pm CLINICAL HISTORY: with vaginal bleeding COMPARISON: None. FINDINGS: The uterus measures 9 x 5 x 6 centimeters. A 4 x 2 centimeter lobulated cystic structure surrounded by areas of echogenicity are present within the uterus. Normal gestational sac not seen Ovaries are normal in size and echotexture.. The right and left adnexa unremarkable No significant free fluid IMPRESSION: 4 x 2 centimeter lobulated cystic structure surrounded by areas of echogenicity within t he uterus may indicate an incomplete . Another consideration is that this represents a molar . This would be correlated with a high beta HCG level.
[2023-06-06 18:42] LABS: Absolute Lymphocytes (CBC) 2.4 K/uL (0.7-4.9); Hematocrit 36.8 % (36.0-45.0); Lymphocytes % 34.3 % (15.3-44.8); MCV 72.9 fL (80-100); MPV 7.8 fL (7.6-11.3); Platelets 224 thou/uL (152-406); RBC Red Blood Cell Count 5.04 M/uL (3.86-4.86)
[2023-06-06 18:42] LABS: Specific Gravity 1.022 (1.005-1.030); Urine Bilirubin NEGATIVE (Negative); Urine Blood Negative (Negative); Urine Clarity Clear (Clear); Urine Color Light-Yellow (Yellow); Urine Glucose NEGATIVE (Negative); Urine Protein NEGATIVE (Negative); Urine Urobilinogen Normal (Normal); Urine pH 5.5 (5.0-7.0)
[2023-06-06 18:59] LABS: Specific Gravity 1.022 (1.005-1.030)
[2023-06-06 19:10] LABS: Potassium 3.5 mEq/L (3.5-5.1)
--- NOTE | 2023-06-06 19:29 | ER ---
Nurse's Notes [facility] Name: Irma López Age: 28 yrs Sex: Female : 1995 Arrival Date: 06/06/2023 Time: 15:19 Bed 12 Private MD: Diagnosis: Incomplete spontaneous without complication Presentation: 06/06 15:55 Chief complaint: Patient states: Vaginal bleeding onset 2 days ago. Pt states that she cm10 had a positive test last week. Pt reports going through 2 pads per day, bright red blood. Pt reports having a D\T\C 3 months ago. Pt reports having cramping. Coronavirus screen: Client denies travel out of the [place] in the last 14 days. Ebola Screen: Patient denies travel to an Ebola-affected area in the 21 days before illness onset. No symptoms or risks identified at this time. Initial Sepsis Screen: Does the patient meet any 2 criteria? No. Patient's initial sepsis screen is negative. Does the patient have a suspected source of infection? No. Patient's initial sepsis screen is negative. Risk Assessment: Do you want to hurt yourself or someone else? Patient reports no desire to harm self or others. Onset of symptoms was June 06, 2023. 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 - Social history:: Smoking status: Patient denies any tobacco usage or history of. Screenin:32 [facility] ED Fall Risk Assessment (Adult) History of falling in the last 3 months, hb including since admission No falls in past 3 months (0 pts) Confusion or Disorientation No (0 pts) Intoxicated or Sedated No (0 pts) Impaired Gait No (0 pts) Mobility Assist Device Used No (0 pt) Altered Elimination No (0 pt) Score/Fall Risk Level 0 - 2 = Low Risk Maintained a safe environment, Provided non-skid footwear, Hourly rounding (assess needs \T\ fall precautionary measures) done. Abuse screen: Denies threats or abuse. Nutritional screening: No deficits noted. Tuberculosis screening: No symptoms or risk factors identified. Assessment: 19:32 General: Appears comfortable, well groomed, well developed, well nourished, Behavior is hb calm, cooperative, appropriate for age, Reports Vaginal bleeding onset 2 days ago. Pt states that she had a positive test last week. Pt reports going through 2 pads per day, bright red blood. Pt reports having a D\T\C 3 months ago. Pt reports having cramping. Pain: Complains of pain in right lower quadrant and left lower quadrant Pain does not radiate. Pain currently is 3 out of 10 on a pain scale. Quality of pain is described as crampy, Pain began gradually, Is intermittent. Neuro: Level of Consciousness is awake, alert, obeys commands, Oriented to person, place, time, situation, Appropriate for age. Cardiovascular: Capillary refill < 3 seconds Patient's skin is warm and dry. Respiratory: Airway is patent Respiratory effort is even, unlabored, Respiratory pattern is regular, symmetrical. : Reports vaginal bleeding that is bright red, since 2 days ago. 19:39 Obstetrical Assessment: n/a. Incomplete miscarriage. . hb Vital Signs: 15:55 BP 119 / 76; Pulse 79; Resp 16; Temp 97.8; Pulse Ox 100% ; Weight 58.97 kg; Height 5 cm10 ft. 1 in. ; Pain 7/10; 19:32 BP 110 / 77; Pulse 69; Resp 17; Pulse Ox 100% on R/A; hb 15:55 Body Mass Index 24.56 (58.97 kg, 154.94 cm) cm10 15:55 Pain Scale: Adult cm10 Vitals: 19:39 Heart Tones n/a. hb ED Course: 15:20 Patient arrived in ED. rg4 15:21 Karen Macias PA-C is PHCP. sb4 15:21 Waqas Bonilla DO is Attending Physician. sb4 15:57 Triage completed. cm10 15:57 Arm band placed on Patient placed in waiting room. cm10 17:12 US Transvaginal Ob In Process Unspecified. EDMS 18:29 Urinalysis w/ reflexes Sent. hb 18:29 Quantitative Hcg Sent. hb 18:29 Test, Urine Sent. hb 18:34 Basic Metabolic Panel Sent. cm10 18:34 CBC with Diff Sent. cm10 18:34 Initial lab(s) drawn, by me, sent to lab. Inserted saline lock: 20 gauge in left cm10 antecubital area, using aseptic technique. Blood collected. 19:12 Rosario Magana, RN is Primary Nurse. hb 19:32 Patient has correct armband on for positive identification. Bed in low position. Call hb light in reach. Side rails up X 1. Provided Education on: POC. Verbalized understanding. . 19:32 No provider procedures requiring assistance completed. hb 19:39 IV discontinued, intact, bleeding controlled, No redness/swelling at site. Pressure hb dressing applied. Administered Medications: No medications were administered Medication: 19:32 VIS not applicable for this client. hb Point of Care Testing: Urine : 19:39 hCG Reading: Positive; hb Outcome: 19:29 Discharge ordered by . sb4 19:39 Discharged to home ambulatory, hb 19:39 Condition: stable 19:39 Discharge instructions given to patient, Instructed on discharge instructions, follow up and referral plans. Demonstrated understanding of instructions, follow-up care, 19:42 Patient left the ED. hb Signatures: Dispatcher [employer] EDMS Rosario Magana, RN RN Catherine Conti Sophia, PA-C PAAaron [email or web address] Madison Riley RN RN cm10 Corrections: (The following items were deleted from the chart) 19:32 15:55 Chief complaint: Patient states: Vaginal bleeding onset 2 days ago. Pt states hb that she had a positive test last week. Pt reports going through 2 pads per day, bright red blood. Pt reports having a D\T\C 3 months ago. Pt reports having cramping. cm10
--- NOTE | 2023-06-06 19:29 | EDPHYS ---
Physician Documentation [facility] Name: Irma López Age: 28 yrs Sex: Female : 1995 Arrival Date: 06/06/2023 Time: 15:19 Bed 12 Private MD: ED Physician Waqas Bonilla HPI: 06/06 15:58 This 28 yrs old Black Female presents to ER via Ambulatory with complaints of Vaginal sb4 Bleeding, + Preg <12wks. 15:59 The patient presents to the emergency department with vaginal bleeding, that is sb4 moderate, with clots. Previous pregnancies: in previous pregnancies patient has had. positive test last week, vaginal bleeding began 2 days ago. was very heavy initially, has slowed down. no tissue noted, mild abdominal cramping. no fever, chills, chest pain, sob. 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 - Social history:: Smoking status: Patient denies any tobacco usage or history of. ROS: 15:59 Constitutional: Negative for fever, chills, and weight loss, sb4 15:59 Abdomen/GI: Positive for abdominal cramps, 15:59 : Positive for vaginal bleeding, 15:59 All other systems are negative, Exam: 15:59 Constitutional: This is a well developed, well nourished patient who is awake, alert, sb4 and in no acute distress. Head/Face: Normocephalic, atraumatic. Eyes: Extra-ocular motions intact. Periorbital areas with no swelling, redness, or edema. ENT: Mucous membranes moist. Cardiovascular: Regular rate and rhythm with a normal S1 and S2. Respiratory: Lungs have equal breath sounds bilaterally, clear to auscultation and percussion. No rales, rhonchi or wheezes noted. No increased work of breathing, no retractions or nasal flaring. Abdomen/GI: Soft, non-tender, no distension. Skin: Warm, dry with normal turgor. Normal color with no rashes, no lesions, and no evidence of cellulitis. MS/ Extremity: Pulses equal, no cyanosis. Neurovascular intact. Full, normal range of motion. Neuro: Awake and alert, GCS 15, oriented to person, place, time, and situation. Motor strength 5/5 in all extremities. Sensory grossly intact. 19:27 : Pelvic Exam: External exam: is normal, Speculum exam: no bleeding is noted, no sb4 cervicitis, os that is closed, no tissue in cervix is seen, no tissue in vagina is seen, the nurse was present for the exam, Vital Signs: 15:55 BP 119 / 76; Pulse 79; Resp 16; Temp 97.8; Pulse Ox 100% ; Weight 58.97 kg; Height 5 cm10 ft. 1 in. ; Pain 7/10; 19:32 BP 110 / 77; Pulse 69; Resp 17; Pulse Ox 100% on R/A; hb 15:55 Body Mass Index 24.56 (58.97 kg, 154.94 cm) cm10 15:55 Pain Scale: Adult cm10 MDM: 15:51 Patient medically screened. sb4 15:59 Differential diagnosis: threatened Ab, inevitable Ab, complete Ab, missed Ab, ectopic sb4 . 19:27 Data reviewed: vital signs, nurses notes, lab test result(s), radiologic studies, I sb4 have discussed the patient's presentation/case with the attending Emergency Department Physician; and as a result, I will discharge patient. Counseling: I had a detailed discussion with the patient and/or guardian regarding the historical points, exam findings, and any diagnostic results supporting the discharge/admit diagnosis, lab results, radiology results, the need for outpatient follow up, an OB/Gyne specialist, to return to the emergency department if symptoms worsen or persist or if there are any questions or concerns that arise at home. 06/06 15:58 Order name: Basic Metabolic Panel; Complete Time: 19:11 sb4 06/06 15:58 Order name: CBC with Diff; Complete Time: 18:44 sb4 06/06 15:58 Order name: Test, Urine; Complete Time: 19:03 sb4 06/06 15:58 Order name: Quantitative Hcg; Complete Time: 19:11 sb4 06/06 15:58 Order name: Urinalysis w/ reflexes; Complete Time: 18:43 sb4 06/06 15:58 Order name: US Transvaginal Ob; Complete Time: 18:26 sb4 06/06 15:58 Order name: IV Saline Lock; Complete Time: 18:34 sb4 06/06 15:58 Order name: Labs collected and sent; Complete Time: 18:34 sb4 06/06 15:58 Order name: Pelvic Exam Setup; Complete Time: 19:15 sb4 Administered Medications: No medications were administered Point of Care Testing: Urine : 19:39 hCG Reading: Positive; hb Disposition: 17:05 I was immediately available on-site in the Emergency Department for consultation in the ms3 care of the patient. Disposition Summary: 06/06/23 19:29 Discharge Ordered Notes: Location: Home sb4 Problem: new sb4 Symptoms: are unchanged sb4 Condition: Stable sb4 Diagnosis - Incomplete spontaneous without complication sb4 Followup: sb4 - With: Private Physician - When: 1 - 2 days - Reason: Recheck today's complaints, Re-evaluation by your physician Discharge Instructions: - Discharge Summary Sheet sb4 - Incomplete Miscarriage sb4 Forms: - Medication Reconciliation Form sb4 - Thank You Letter sb4 - Antibiotic Education sb4 - Prescription Opioid Use sb4 - Patient Portal Instructions sb4 - Leadership Thank You Letter sb4 Signatures: Dispatcher [employer] EDMS Waqas Bonilla DO DO ms3 Karen Macias PA-C PA-C sb4 Madison Riley, RN RN cm10
[2023-06-06 19:50] VITALS: BP 110/77; TEMP 97.8; O2SAT 100
== END 2023-06-06 19:42 | disposition home or self-care (01) ==
LOC: ER 15:19
DX: O03.9 Complete or unspecified spontaneous abortion without complication (principal)
CPT/HCPCS: 36415; 76817; 80048; 81003; 81025; 84702; 85025; 99284

== ENCOUNTER → 2023-06-25 | Emergency (ER) | payer OTHER ==
[~2023-06-25] MED LIST: MORPHINE 4 MG/ML SYR ONE; ONDANSETRON 4 MG/2 ML VIAL ONE
[2023-06-25 13:23] LABS: Specific Gravity > 1.030 (1.005-1.030)
[2023-06-25 13:25] LABS: Specific Gravity > 1.030 (1.005-1.030); Urine Bacteria None Seen /HPF (<20); Urine Bilirubin NEGATIVE (Negative); Urine Blood Trace (Negative); Urine Clarity Turbid (Clear); Urine Color Yellow (Yellow); Urine Glucose NEGATIVE (Negative); Urine Mucus 3+ /HPF (None Seen); Urine Protein TRACE (Negative); Urine RBC <5 /HPF (None Seen); Urine Urobilinogen Normal (Normal); Urine pH 5.5 (5.0-7.0)
[2023-06-25 14:08] LABS: Absolute Lymphocytes (CBC) 1.7 K/uL (0.7-4.9); MCV 72.6 fL (80-100); MPV 7.5 fL (7.6-11.3); Platelets 235 thou/uL (152-406); RBC Red Blood Cell Count 4.96 M/uL (3.86-4.86)
[2023-06-25 14:33] LABS: Potassium 3.5 mEq/L (3.5-5.1)
--- NOTE | 2023-06-25 14:46 | RAD REPORT ---
EXAM DESCRIPTION: US - Transvaginal OB - 06/25/2023 1:46 pm CLINICAL HISTORY: with vaginal bleeding COMPARISON: June 06, 2023 FINDINGS: The uterus measures 8 x 5 x 7 centimeters. The endometrial stripe is thickened and hetero geneous. It measures 2.4 centimeters. The uterus is vascular Ovaries are normal in size and echotexture.. The right and left adnexa unremarkable No significant free fluid IMPRESSION: Thickened and heterogeneous endometrial stripe likely retained products of conception
--- NOTE | 2023-06-25 15:00 | EDPHYS ---
Physician Documentation [facility] Name: Irma López Age: 28 yrs Sex: Female : 1995 Arrival Date: 06/25/2023 Time: 12:36 Bed 6 Private MD: ED Physician Andrea Torres HPI: 06/25 12:47 This 28 yrs old Black Female presents to ER via Ambulatory with complaints of Abdominal jh7 Pain, Pelvic Pain. 12:47 The patient presents with abdominal pain in the lower abdomen. Onset: The jh7 symptoms/episode began/occurred 2 day(s) ago. The symptoms do not radiate. Associated signs and symptoms: Pertinent negatives: nausea and vomiting, constipation, diarrhea, dysuria, fever, vaginal discharge. 28-year-old female presents to the ER complaining of pelvic pain and cramping for the past 2 days. Reports that she had a D\T\C done April 11 and was 11 weeks at the time. Reports that she was seen in the ER 3 weeks ago, had an ultrasound done and was sent home. Reports that she followed up with her [facility] who performed an ultrasound 2 weeks ago. She reported that it was negative. The patient states that she has not gotten her period yet and is still showing up positive on a test. Denies fever or dysuria. G2, L1. Denies any sexual activity since the procedure.. Historical: - Allergies: 12:49 No Known Allergies; hb - PMHx: 12:49 Asthma; hb - Immunization history:: Adult Immunizations up to date. - Social history:: Smoking status: unknown. ROS: 12:47 Constitutional: Negative for fever, chills, and weight loss, Eyes: Negative for injury, jh7 pain, redness, and discharge, Neck: Negative for injury, pain, and swelling, Cardiovascular: Negative for chest pain, palpitations, and edema, Respiratory: Negative for shortness of breath, cough, wheezing, and pleuritic chest pain, Back: Negative for injury and pain, MS/Extremity: Negative for injury and deformity, Skin: Negative for injury, rash, and discoloration, Neuro: Negative for headache, weakness, numbness, tingling, and seizure, 12:47 Abdomen/GI: Positive for abdominal pain, Negative for nausea, vomiting, and diarrhea, constipation, 12:47 : Positive for pelvic pain, Negative for urinary symptoms, vaginal bleeding, 12:47 All other systems are negative, Exam: 12:47 Constitutional: This is a well developed, well nourished patient who is awake, alert, jh7 and in no acute distress. Head/Face: Normocephalic, atraumatic. Neck: Trachea midline, no thyromegaly or masses palpated, and no cervical lymphadenopathy. Supple, full range of motion without nuchal rigidity, or vertebral point tenderness. No Meningismus. Cardiovascular: Regular rate and rhythm with a normal S1 and S2. No gallops, murmurs, or rubs. Normal PMI, no JVD. No pulse deficits. Respiratory: Lungs have equal breath sounds bilaterally, clear to auscultation and percussion. No rales, rhonchi or wheezes noted. No increased work of breathing, no retractions or nasal flaring. Back: No spinal tenderness. No costovertebral tenderness. Full range of motion. Skin: Warm, dry with normal turgor. Normal color with no rashes, no lesions, and no evidence of cellulitis. MS/ Extremity: Pulses equal, no cyanosis. Neurovascular intact. Full, normal range of motion. Neuro: Awake and alert, GCS 15, oriented to person, place, time, and situation. Motor strength 5/5 in all extremities. Sensory grossly intact. Normal gait. Vital Signs: 12:47 BP 128 / 69; Pulse 74; Resp 16; Temp 97.6; Pulse Ox 100% ; Weight 58.97 kg; Height 5 hb ft. 1 in. ; 14:08 BP 110 / 71; Pulse 73; Resp 16; Pulse Ox 100% on R/A; iw 15:46 BP 110 / 71; Pulse 92; Resp 18; Pulse Ox 100% on R/A; Pain 8/10; ld1 12:47 Body Mass Index 24.56 (58.97 kg, 154.94 cm) hb 15:46 Pain Scale: Adult ld1 MDM: 12:44 Patient medically screened. jh7 15:50 Differential diagnosis: non-specific abd pain, Ovarian Torsion, Tubal Ovarian Abcess, jh7 urinary tract infection, Retained products of conception. Data reviewed: vital signs, nurses notes, lab test result(s), radiologic studies, ultrasound. Consideration of Admission/Observation Escalation of care including admission/observation considered. Management of patient was discussed with the following: Auto Bench Mechanic: Dr. Peralta, [facility] hospitalist at [facility]. She stated that due to the patient not showing any signs or symptoms of infection on neither clinical presentation or lab work, she should follow-up with her [facility]IDENT [facility]ARE A[facility]. She explained that a second D\T\C usually was not recommended due to uterine scarring. She advised covering for infection prophylactically with doxycycline and Flagyl. The patient will follow-up with her RESIDENT CARE AID as suggested.. I considered the following discharge prescriptions or medication management in the emergency department Medications were administered in the Emergency Department. See MAR. Counseling: I had a detailed discussion with the patient and/or guardian regarding the historical points, exam findings, and any diagnostic results supporting the discharge/admit diagnosis, the need for outpatient follow up, an OB/Gyne specialist, to return to the emergency department if symptoms worsen or persist or if there are any questions or concerns that arise at home. Response to treatment: the patient's symptoms have markedly improved after treatment. 06/25 12:55 Order name: Abo/rh Typing; Complete Time: 14:[address] [facility] 06/25 12:55 Order name: Basic Metabolic Panel; Complete Time: 14:[address] [facility] 06/25 12:55 Order name: CBC with Diff; Complete Time: 14:[address] [facility] 06/25 12:55 Order name: Test, Urine; Complete Time: 13:[address] [facility] 06/25 12:55 Order name: Quantitative Hcg; Complete Time: 14:[address] [facility] 06/25 12:55 Order name: Urinalysis w/ reflexes; Complete Time: 13:[address] [facility] 06/25 13:47 Order name: Transvaginal OB; Complete Time: 14:47 EDMS 06/25 12:55 Order name: IV Saline Lock; Complete Time: 14:[address] [facility] 06/25 12:55 Order name: Labs collected and sent; Complete Time: 14:[address] [facility] 06/25 12:55 Order name: NPO; Complete Time: 13:[address] [facility] Administered Medications: 15:45 Drug: Ondansetron IVP 4 mg IVP once; over 2 minutes Route: IVP; Site: right antecubital;ld1 15:46 Drug: morphine IVP or IV 4 mg IVP once over 4 mins Route: IVP; Infused Over: 4 mins; ld1 Site: right antecubital; 16:28 Follow up: Response: No adverse reaction iw Disposition: 18:38 Co-signature as Attending Physician, Andrea Torres MD I reviewed the patient's care rn provided by the Advanced Practice Provider and agree with the diagnosis and treatment plan. Disposition Summary: 06/25/23 15:46 Discharge Ordered Notes: Location: Home jh Problem: an ongoing problem(06/25/23 15:46) jh7 Symptoms: are unchanged(06/25/23 15:46) jh7 Condition: Stable(06/25/23 15:46) jh7 Diagnosis - Retained Products of Conception jh7 Followup: [facility] - With: Private Physician - When: 2 - 3 days - Reason: Recheck today's complaints Discharge Instructions: - Discharge Summary Sheet [facility] - Dilation and Curettage or Vacuum Curettage, Care After jh7 Forms: - Medication Reconciliation Form [facility] - Thank You Letter [facility] - Antibiotic Education [facility] - Patient Portal Instructions [facility] - Leadership Thank You Letter [facility] Prescriptions: - Flagyl 500 mg Oral Tablet - take 1 tablet ORAL route every 12 hours for 7 days; 14 tablet; Refills: 0, jh7 Product Selection Permitted - Doxycycline Hyclate 100 mg Oral tablet - take 1 tablet ORAL route every 12 hours for 7 days; 14 tablet; Refills: 0, jh7 Product Selection Permitted Signatures: Dispatcher [employer] Andrea Ferreira MD MD rn Baxter, Heather, RN RN Maria Esther Bonilla RN RN ld1 Susy Kohli FNP HUMANE AGENT 7 Maddy Luque RN iw Corrections: (The following items were deleted from the chart) 13:31 12:47 28-year-old female presents to the ER complaining of pelvic pain and cramping for jh7 the past 2 days. Reports that she had a D\T\C done April 11 and was 11 weeks at the time. Reports that she was seen in the ER 3 weeks ago, had an ultrasound done and was sent home. Reports that she followed up with her [facility] who performed an ultrasound 2 weeks ago. She reported that it was negative. The patient states that she has not gotten her period yet and is still showing up positive on a test. Denies fever or dysuria. G2, L1.. jh7 13:47 12:56 Pelvis Complete+US.RAD.BRZ ordered. EDMS EDMS 15 14:[address] [facility] 15 14:[address] [facility] 15: 14:58 Higher level of care [place] [id number] 14:58 Stable [place] [id number] 15: 14:58 new [place] [id number] 15: 14:58 have worsened [place] [id number] 15: 14:58 Retained products of conception [place] [id number]
--- NOTE | 2023-06-25 15:00 | ER ---
Nurse's Notes [facility] Name: Irma López Age: 28 yrs Sex: Female : 1995 Arrival Date: 06/25/2023 Time: 12:36 Bed 6 Private MD: Diagnosis: Retained Products of Conception Presentation: 06/25 12:47 Chief complaint: Patient states: 2 DAYS PELVIC CRAMPS, NO MENSTRUAL PERIOD SINCE D\T\C hb 04/11. DENIES DYSURIA OR VAGINAL BLEEDING. Coronavirus screen: At this time, the client does not indicate any symptoms associated with coronavirus-19. Ebola Screen: No symptoms or risks identified at this time. Initial Sepsis Screen: Does the patient meet any 2 criteria? No. Patient's initial sepsis screen is negative. Does the patient have a suspected source of infection? No. Patient's initial sepsis screen is negative. Risk Assessment: Do you want to hurt yourself or someone else? Patient reports no desire to harm self or others. Onset of symptoms is unknown. 12:47 Method Of Arrival: Ambulatory hb 12:47 Acuity: TAZ 3 hb Triage Assessment: 12:50 General: Appears in no apparent distress. Behavior is calm, cooperative, appropriate hb for age. Pain: Complains of pain in pelvis. GI: Reports cramping. Historical: - Allergies: 12:49 No Known Allergies; hb - PMHx: 12:49 Asthma; hb - Immunization history:: Adult Immunizations up to date. - Social history:: Smoking status: unknown. Screenin:08 [facility] ED Fall Risk Assessment (Adult) Score/Fall Risk Level 0 - 2 = Low Risk. Abuse iw screen: Denies threats or abuse. Denies injuries from another. Nutritional screening: No deficits noted. Tuberculosis screening: No symptoms or risk factors identified. Assessment: 14:08 Reassessment: Patient appears in no apparent distress at this time. Patient and/or iw family updated on plan of care and expected duration. Pain level reassessed. Patient is alert, oriented x 3, equal unlabored respirations, skin warm/dry/pink. 15:43 Reassessment: Patient appears in no apparent distress at this time. Patient and/or iw family updated on plan of care and expected duration. Pain level reassessed. Patient is alert, oriented x 3, equal unlabored respirations, skin warm/dry/pink. 16:27 Reassessment: Patient appears in no apparent distress at this time. Patient and/or iw family updated on plan of care and expected duration. Pain level reassessed. Patient is alert, oriented x 3, equal unlabored respirations, skin warm/dry/pink. Vital Signs: 12:47 BP 128 / 69; Pulse 74; Resp 16; Temp 97.6; Pulse Ox 100% ; Weight 58.97 kg; Height 5 hb ft. 1 in. ; 14:08 BP 110 / 71; Pulse 73; Resp 16; Pulse Ox 100% on R/A; iw 15:46 BP 110 / 71; Pulse 92; Resp 18; Pulse Ox 100% on R/A; Pain 8/10; ld1 12:47 Body Mass Index 24.56 (58.97 kg, 154.94 cm) hb 15:46 Pain Scale: Adult ld1 ED Course: 12:40 Patient arrived in ED. ts1 12:44 Susy Kohli FNP [facility]. jh7 12:44 Andrea Torres MD is Attending Physician. jh7 12:49 Triage completed. hb 12:49 Arm band placed on. hb 13:47 Transvaginal OB In Process Unspecified. EDMS 14:08 Maddy Luque, RN is Primary Nurse. iw 14:08 Initial lab(s) drawn, by ED staff, sent to lab. Inserted saline lock: 22 gauge in right iw antecubital area, using aseptic technique. Blood collected. 14:11 Abo/rh Typing Sent. ld1 14:11 Basic Metabolic Panel Sent. ld1 14:11 Quantitative Hcg Sent. ld1 15:10 initiated a transfer with Ольга from the [facility] Transfer center at the request of the eb patient. 15:43 Patient has correct armband on for positive identification. Provided Education on: . iw 16:27 No provider procedures requiring assistance completed. IV discontinued, intact, iw bleeding controlled, No redness/swelling at site. Pressure dressing applied. Administered Medications: 15:45 Drug: Ondansetron IVP 4 mg IVP once; over 2 minutes Route: IVP; Site: right antecubital;ld1 15:46 Drug: morphine IVP or IV 4 mg IVP once over 4 mins Route: IVP; Infused Over: 4 mins; ld1 Site: right antecubital; 16:28 Follow up: Response: No adverse reaction iw Medication: 14:08 VIS not applicable for this client. iw Outcome: 14:58 ER care complete, transfer ordered by MD. rangel 15:46 Discharge ordered by MD. rangel 16:28 Patient left the ED. iw Signatures: Dispatcher [employer] Maddy Oliva RN RN Rosario Magana RN RN Chasity Serrano Lauren, RN RN 1 Susy Kohli FNP [employer]OD[employer] ENGINEERING MANAGER Dorene Sawyer PAS PAS ts1 Corrections: (The following items were deleted from the chart) 12:50 12:47 Chief complaint: Patient states: 2 DAYS PELVIC CRAMPS, NO MENSTRUAL PERIOD SINCE hb D\T\C IN MARCH. DENIES DYSURIA OR VAGINAL BLEEDING hb
[2023-06-25 16:57] VITALS: BP 110/71; TEMP 97.6; O2SAT 100
== END ==
LOC: ER 12:36
DX: O73.1 Retained portions of placenta and membranes, without hemorrhage (principal)
CPT/HCPCS: 85025; 81001; 80048; 36415; 86900; 81025; 86901; 84702; 76817; 96375; 96374; 99284; J2405

== ENCOUNTER → 2023-08-14 | Emergency (ER) | payer OTHER ==
[~2023-08-14] MED LIST changes: +ACETAMINOPHEN 500 MG TAB ONE; +HYOSCYAMINE SULF 0.125 MG TAB ONE; +IBUPROFEN 400 MG TAB ONE; +METOCLOPRAMIDE 5 MG TAB ONE; -MORPHINE 4 MG/ML SYR ONE; -ONDANSETRON 4 MG/2 ML VIAL ONE
[2023-08-14 21:10] LABS: Absolute Lymphocytes (CBC) 2.3 K/uL (0.7-4.9); Hematocrit 34.7 % (36.0-45.0); Lymphocytes % 42.7 % (15.3-44.8); MCV 71.3 fL (80-100); MPV 7.8 fL (7.6-11.3); Platelets 275 thou/uL (152-406); RBC Red Blood Cell Count 4.86 M/uL (3.86-4.86)
--- NOTE | 2023-08-14 21:17 | RAD REPORT ---
EXAM DESCRIPTION: US - Transvaginal Study Probe - 08/14/2023 8:46 pm CLINICAL HISTORY: persistent bleeding for 3 weeks Pelvic pain. COMPARISON: Transvaginal Study Probe dated 07/23/2023 FINDINGS: The uterus is normal in size, shape but has a heterogeneous echotexture. The uterus measur es 9.4 x 3.8 x 5.7 cm with volume of 105.8 cc . Small nabothian cysts noted. The endometrial stripe is heterogeneous with decrease in size measuring 3 mm. The right ovary measures 5 x 3.7 x 3.8 cm with volume of 37.1 cc. The left ovary measures 3.7 x 1.7 x 2 cm with volume of 6.8 cc. Complex lesion in the right ovary measuring 3.9 by 3 cm is identified. T his is avascular centrally. The cystic left adnexal lesion has significantly to diffuse in size and n ow measures 1.6 cm, previously approximately 4.6 cm. Normal Doppler blood flow was demonstrated to both ovaries. Trace free fluid in pelvis. IMPRESSION: 1. Previously noted complex material in the endometrial canal is no longer identified. T he endometrial stripe now measures 3 millimeters and is within normal limits. 2. The cystic left ovarian lesion has decreased in size consistent with a physiologic etiology. A new complex right ovarian lesion is identified which is echogenic but does not demonstrate any vascular flow. This is consistent with a hemorrhagic cyst given the short interval development.
[2023-08-14 21:33] LABS: Albumin 3.7 g/dL (3.4-5.0); Bilirubin Total 0.3 mg/dL (0.2-1.0); Potassium 3.6 mEq/L (3.5-5.1); Protein, Total 7.4 g/dL (6.4-8.2)
[2023-08-14 22:43] LABS: Specific Gravity > 1.030 (1.005-1.030)
[2023-08-14 22:44] LABS: Specific Gravity > 1.030 (1.005-1.030); Urine Bacteria None Seen /HPF (<20); Urine Bilirubin NEGATIVE (Negative); Urine Blood Negative (Negative); Urine Clarity Clear (Clear); Urine Color Light-Yellow (Yellow); Urine Glucose NEGATIVE (Negative); Urine Mucus 4+ /HPF (None Seen); Urine Protein TRACE (Negative); Urine RBC <5 /HPF (None Seen); Urine Urobilinogen Normal (Normal); Urine pH 5.5 (5.0-7.0)
--- NOTE | 2023-08-14 22:49 | ER ---
Nurse's Notes [facility] Name: Irma López Age: 28 yrs Sex: Female : 1995 Arrival Date: 08/14/2023 Time: 19:27 Bed 7 Private MD: Diagnosis: Abnormal uterine and vaginal bleeding, unspecified;Uterine tissue retained after D\T\C. Presentation: 08/14 19:45 Chief complaint: Patient states: Pt c/o vaginal bleeding x 3 weeks. Pt states [employer] told tl4 her this is her first period since having a D\T\C on 04/11/2023. Pt also c/o abdominal cramping. Pt denies any chance of . Coronavirus screen: At this time, the client does not indicate any symptoms associated with coronavirus-19. Ebola Screen: No symptoms or risks identified at this time. Initial Sepsis Screen: Does the patient meet any 2 criteria? No. Patient's initial sepsis screen is negative. Does the patient have a suspected source of infection? No. Patient's initial sepsis screen is negative. Risk Assessment: Do you want to hurt yourself or someone else? Patient reports no desire to harm self or others. Onset of symptoms was July 23, 2023. 19:45 Method Of Arrival: Ambulatory tl4 19:45 Acuity: TAZ 3 tl4 Triage Assessment: 19:50 General: Appears in no apparent distress. Behavior is calm, cooperative. Pain: tl4 Complains of pain in abdomen Quality of pain is described as crampy. EENT: No deficits noted. No signs and/or symptoms were reported regarding the EENT system. Neuro: No deficits noted. Cardiovascular: No deficits noted. Respiratory: No deficits noted. GI: No deficits noted. No signs and/or symptoms were reported involving the gastrointestinal system. : Reports vaginal bleeding that is bright red, with clots, light flow. Historical: - Allergies: 19:49 No Known Allergies; tl4 - Home Meds: 19:49 albuterol sulfate 90 mcg/actuation Inhl HFA Aerosol Inhaler 2 puffs as needed [Active]; tl4 - PMHx: 19:49 Asthma; tl4 - PSHx: 19:49 D\T\C; tl4 - Immunization history:: Adult Immunizations unknown. - Social history:: Smoking status: Patient denies any tobacco usage or history of. - Family history:: not pertinent. Screenin:00 [facility] ED Fall Risk Assessment (Adult) History of falling in the last 3 months, jw7 including since admission No falls in past 3 months (0 pts) Score/Fall Risk Level 0 - 2 = Low Risk Oriented to surroundings, Maintained a safe environment, Educated pt \T\ family on fall prevention, incl call for assistance when getting out of bed. Abuse screen: Denies threats or abuse. Denies injuries from another. Nutritional screening: No deficits noted. Tuberculosis screening: No symptoms or risk factors identified. Assessment: 19:55 General: See Triage Assessment. jw7 20:00 Reassessment: pt taken to ultrasound. km8 21:00 Reassessment: Patient appears in no apparent distress at this time. No changes from jw7 previously documented assessment. Patient and/or family updated on plan of care and expected duration. Pain level reassessed. Patient is alert, oriented x 3, equal unlabored respirations, skin warm/dry/pink. 22:00 Reassessment: Patient appears in no apparent distress at this time. No changes from jw7 previously documented assessment. Patient and/or family updated on plan of care and expected duration. Pain level reassessed. Patient is alert, oriented x 3, equal unlabored respirations, skin warm/dry/pink. Vital Signs: 19:45 BP 116 / 79; Pulse 68; Resp 16; Temp 98.1(TE); Pulse Ox 100% on R/A; Weight 57.61 kg; tl4 Height 5 ft. 1 in. ; Pain 3/10; 21:00 BP 126 / 91; Pulse 79; Resp 18 S; Pulse Ox 100% on R/A; jw7 22:05 BP 118 / 61; Pulse 65; Resp 16; Pulse Ox 100% on R/A; jw7 19:45 Body Mass Index 24.00 (57.61 kg, 154.94 cm) tl4 19:45 Pain Scale: Adult tl4 ED Course: 19:31 Patient arrived in ED. jj6 19:34 Luis Armando Dc MD is Attending Physician. sp4 19:49 Triage completed. tl4 19:52 Arm band placed on right wrist. tl4 20:00 Patient has correct armband on for positive identification. Bed in low position. Call jw7 light in reach. 20:08 Yesenia Meehan, RN is Primary Nurse. km8 20:48 Transvaginal Study Probe In Process Unspecified. EDMS 21:03 Initial lab(s) drawn, by ED staff, sent to lab. Inserted saline lock: 22 gauge in right jw7 antecubital area, using aseptic technique. Blood collected. 21:11 No provider procedures requiring assistance completed. km8 22:48 Anel Baez MD is Referral Physician. sp4 22:57 IV discontinued, intact, bleeding controlled, No redness/swelling at site. Pressure km8 dressing applied. 22:58 Provided Education on: d/c teaching. km8 Administered Medications: 21:02 Drug: Acetaminophen PO 1000 mg PO once Route: PO; km8 22:50 Follow up: Response: No adverse reaction km8 21:02 Drug: Ibuprofen PO 800 mg PO once Route: PO; km8 22:50 Follow up: Response: No adverse reaction km8 21:02 Drug: MetoCLOPramide PO 10 mg PO once Route: PO; km8 22:50 Follow up: Response: No adverse reaction km8 21:02 Drug: Hyoscyamine Sublingual 0.125 mg 2 tabs Sublingual once Route: Sublingual; km8 22:50 Follow up: Response: No adverse reaction km8 Medication: 21:11 VIS not applicable for this client. km8 Outcome: 22:49 Discharge ordered by . sp4 22:58 Discharged to home ambulatory, km8 22:58 Condition: good 22:58 Discharge instructions given to patient, Instructed on discharge instructions, follow up and referral plans. Demonstrated understanding of instructions, follow-up care, 22:58 Patient left the ED. km8 Signatures: Dispatcher [employer] EDMS Barak Susy [email or web address] Mamta Rowan RN RN jw7 Luis Armando Dc MD MD sp4 Yesenia Meehan, RN RN km8 Urban Mcmillan RN RN tl4
--- NOTE | 2023-08-14 22:49 | EDPHYS ---
Physician Documentation [facility] Name: Irma López Age: 28 yrs Sex: Female : 1995 Arrival Date: 08/14/2023 Time: 19:27 Bed 7 Private MD: ED Physician Luis Armando Dc HPI: 08/14 19:34 This 28 yrs old Black Female presents to ER via Unassigned with complaints of Vaginal sp4 Bleeding. 22:06 Is a very pleasant 28-year-old female who presents with 3 weeks or cramps and vaginal sp4 bleeding. Patient was here on 07/20/2023 and had pelvic ultrasound which revealed the following - FINDINGS: The uterus measures 10 x 5 x 6 centimeters. Endometrial stripe measures 2.5 centimeters and is heterogeneous. Increased blood flow in the periphery. Right ovary is normal in size and echotexture. 4.6 centimeter left ovarian cystic mass containing thickened septation. The right and left adnexa unremarkable No significant free fluid is seen. IMPRESSION: Thickened and heterogeneous endometrium likely retained products of conception 4.6 centimeter left ovarian cystic mass likely a benign complex cyst. However, it is recommended that the patient have a followup ultrasound in 3 months to assess stability/resolution . 22:06 Patient reports she had dilatation and curettaged in [facility] on 04/11/2023. . Historical: - Allergies: 19:49 No Known Allergies; tl4 - Home Meds: 19:49 albuterol sulfate 90 mcg/actuation Inhl HFA Aerosol Inhaler 2 puffs as needed [Active]; tl4 - PMHx: 19:49 Asthma; tl4 - PSHx: 19:49 D\T\C; tl4 - Immunization history:: Adult Immunizations unknown. - Social history:: Smoking status: Patient denies any tobacco usage or history of. - Family history:: not pertinent. ROS: 22:06 Constitutional: Negative for fever, chills, and weight loss, that of vaginal bleeding sp4 and pelvic cramps 22:06 All other systems are negative, Exam: 22:06 Constitutional: This is a well developed, well nourished patient who is awake, alert, sp4 and in no acute distress. Head/Face: Normocephalic, atraumatic. Eyes: Pupils equal round and reactive to light, extra-ocular motions intact. Lids and lashes normal. Conjunctiva and sclera are not injected. Cornea within normal limits. Periorbital areas with no swelling, redness, or edema. ENT: Nares patent. No nasal discharge, no septal abnormalities noted. Tympanic membranes are normal and external auditory canals are clear. Oropharynx with no redness, swelling, or masses, exudates, or evidence of obstruction, uvula midline. Mucous membranes moist. Neck: Trachea midline, no thyromegaly or masses palpated, and no cervical lymphadenopathy. Supple, full range of motion without nuchal rigidity, or vertebral point tenderness. Chest/axilla: Normal chest wall appearance and motion. Nontender with no deformity. No lesions are appreciated. Cardiovascular: Regular rate and rhythm with a normal S1 and S2. No gallops, murmurs, or rubs. Normal PMI, no JVD. No pulse deficits. Respiratory: Lungs have equal breath sounds bilaterally, clear to auscultation and percussion. No rales, rhonchi or wheezes noted. No increased work of breathing, no retractions or nasal flaring. Abdomen/GI: Soft, with normal bowel sounds. No distension or tympany. No guarding or rebound. No evidence of tenderness throughout. Back: No spinal tenderness. No costovertebral tenderness. Skin: Warm, dry with normal turgor. Normal color with no rashes, no lesions, and no evidence of cellulitis. MS/ Extremity: Pulses equal, no cyanosis. Neurovascular intact. Full, normal range of motion. Neuro: Awake and alert, GCS 15, oriented to person, place, time, and situation. Cranial nerves II-XII grossly intact. Motor strength 5/5 in all extremities. Sensory grossly intact. Psych: Awake, alert, with orientation to person, place and time. Behavior, mood, and affect are within normal limits Vital Signs: 19:45 BP 116 / 79; Pulse 68; Resp 16; Temp 98.1(TE); Pulse Ox 100% on R/A; Weight 57.61 kg; tl4 Height 5 ft. 1 in. ; Pain 3/10; 21:00 BP 126 / 91; Pulse 79; Resp 18 S; Pulse Ox 100% on R/A; jw7 22:05 BP 118 / 61; Pulse 65; Resp 16; Pulse Ox 100% on R/A; jw7 19:45 Body Mass Index 24.00 (57.61 kg, 154.94 cm) tl4 19:45 Pain Scale: Adult tl4 MDM: 19:39 Patient medically screened. sp4 22:00 ED course: US today - EXAM DESCRIPTION: US - Transvaginal Study Probe - 08/14/2023 8:46 sp4 pm CLINICAL HISTORY: persistent bleeding for 3 weeks Pelvic pain. COMPARISON: Transvaginal Study Probe dated 07/23/2023 FINDINGS: The uterus is normal in size, shape but has a heterogeneous echotexture. The uterus measures 9.4 x 3.8 x 5.7 cm with volume of 105.8 cc . Small nabothian cysts noted. The endometrial stripe is heterogeneous with decrease in size measuring 3 mm. The right ovary measures 5 x 3.7 x 3.8 cm with volume of 37.1 cc. The left ovary measures 3.7 x 1.7 x 2 cm with volume of 6.8 cc. Complex lesion in the right ovary measuring 3.9 by 3 cm is identified. This is avascular centrally. The cystic left adnexal lesion has significantly to diffuse in size and now measures 1.6 cm, previously approximately 4.6 cm. Normal Doppler blood flow was demonstrated to both ovaries. Trace free fluid in pelvis. IMPRESSION: 1. Previously noted complex material in the endometrial canal is no longer identified. The endometrial stripe now measures 3 millimeters and is within normal limits. 2. The cystic left ovarian lesion has decreased in size consistent with a physiologic etiology. A new complex right ovarian lesion is identified which is echogenic but does not demonstrate any vascular flow. This is consistent with a hemorrhagic cyst given the short interval development. Signed By: Sharath Dominguez MD . ED course: US from prior visit - 07/23/2022 EXAM DESCRIPTION: US - Transvaginal Study Probe - 07/23/2023 7:20 pm CLINICAL HISTORY: Vaginal bleeding COMPARISON: May 2023 FINDINGS: The uterus measures 10 x 5 x 6 centimeters. Endometrial stripe measures 2.5 centimeters and is heterogeneous. Increased blood flow in the periphery. Right ovary is normal in size and echotexture. 4.6 centimeter left ovarian cystic mass containing thickened septation. The right and left adnexa unremarkable No significant free fluid is seen. IMPRESSION: Thickened and heterogeneous endometrium likely retained products of conception 4.6 centimeter left ovarian cystic mass likely a benign complex cyst. However, it is recommended that the patient have a followup ultrasound in 3 months to assess stability/resolution Signed By: Cheng Duran MD Signed AT: 07/23/231934 . 22:06 Differential diagnosis: cervicitis, dysfunctional uterine bleeding, dysmenorrhea, sp4 ectopic , endometriosis. Data reviewed: vital signs, nurses notes. 22:47 Consideration of Admission/Observation Escalation of care including sp4 admission/observation considered. ED course: Patient is stable for discharge home at this time. Will advise follow-up with local FILE CLERK physician for repeat pelvic ultrasound in 2 weeks.. 08/14 19:34 Order name: CBC with Diff; Complete Time: 21:30 sp4 08/14 19:34 Order name: CMP; Complete Time: 21:57 sp4 08/14 19:34 Order name: Test, Urine sp4 08/14 19:34 Order name: Urinalysis w/ reflexes; Complete Time: 22:47 sp4 08/14 20:08 Order name: Transvaginal Study Probe; Complete Time: 21:30 EDMS 08/14 19:34 Order name: IV Saline Lock; Complete Time: 21:02 sp4 08/14 19:34 Order name: Labs collected and sent; Complete Time: 21:02 sp4 Administered Medications: 21:02 Drug: Acetaminophen PO 1000 mg PO once Route: PO; km8 22:50 Follow up: Response: No adverse reaction km8 21:02 Drug: Ibuprofen PO 800 mg PO once Route: PO; km8 22:50 Follow up: Response: No adverse reaction km8 21:02 Drug: MetoCLOPramide PO 10 mg PO once Route: PO; km8 22:50 Follow up: Response: No adverse reaction km8 21:02 Drug: Hyoscyamine Sublingual 0.125 mg 2 tabs Sublingual once Route: Sublingual; km8 22:50 Follow up: Response: No adverse reaction km8 Disposition Summary: 08/14/23 22:49 Discharge Ordered Notes: Please see FILE CLERK MD in 2 weeks for repeat pelvic ultrasound. Location: Home sp4 Problem: new sp4 Symptoms: have improved sp4 Condition: Stable sp4 Diagnosis - Abnormal uterine and vaginal bleeding, unspecified sp4 - Uterine tissue retained after D\T\C. sp4 Followup: sp4 - With: Anel Baez MD - When: 10 - 14 days - Reason: Recheck today's complaints Discharge Instructions: - Discharge Summary Sheet sp4 - Abnormal Uterine Bleeding sp4 Forms: - Patient Portal Instructions sp4 Signatures: Dispatcher [employer] EDLuis Armando Benavides MD MD sp4 Yesenia Meehan RN RN km8 Urban Mcmillan RN RN tl4 Corrections: (The following items were deleted from the chart) 20:08 19:46 Pelvis Complete+US.RAD.BRZ ordered. EDMS EDMS
[2023-08-14 23:21] VITALS: BP 118/61; TEMP 98.1; O2SAT 100
== END ==
LOC: ER 19:27
DX: N93.9 Abnormal uterine and vaginal bleeding, unspecified (principal); N85.8 Other specified noninflammatory disorders of uterus
CPT/HCPCS: 36415; 76830; 80053; 81001; 81025; 85025; 99284

== ENCOUNTER 2024-04-08 16:03 | Emergency (ER) | payer BC, OTHER ==
[2024-04-08 16:44] LABS: Specific Gravity 1.029 (1.005-1.030); Sqamous Epithelial <5 /HPF (None Seen); Urine Bacteria <20 /HPF (<20); Urine Bilirubin NEGATIVE (Negative); Urine Blood Negative (Negative); Urine Clarity Turbid (Clear); Urine Color Yellow (Yellow); Urine Crystals Unidentified Few /HPF (None Seen); Urine Culture Reflex Order NOT NEEDED; Urine Glucose NEGATIVE (Negative); Urine Ketones 1+ (Negative); Urine Microscopic Reflex YN ORDER UMIC; Urine Mucus 3+ /HPF (None Seen); Urine Nitrite 2+ (Negative); Urine Protein TRACE (Negative); Urine Urobilinogen Normal (Normal); Urine WBC <5 /HPF (<5); Urine WBC Clump Rare /HPF (None Seen)
[2024-04-08 16:45] LABS: Specific Gravity 1.029 (1.005-1.030)
[2024-04-08 17:04] LABS: Absolute Eosinophils 0.2 K/uL (0-0.5); Absolute Lymphocytes (CBC) 1.8 K/uL (0.7-4.9); Absolute Monocytes 0.4 K/uL (0.1-1.3); Absolute Neutrophil 3.6 K/uL (1.8-8.0); Basophils % 0.7 % (0-1.3); Eosinophils % 3.4 % (0-4.4); Hematocrit 33.7 % (36.0-45.0); Hemoglobin 10.6 g/dL (12.0-15.0); Lymphocytes % 29.4 % (15.3-44.8); MCH 22.7 pg (27.0-35.0); MCHC 31.4 g/dL (32.0-36.0); MCV 72.5 fL (80-100); MPV 7.9 fL (7.6-11.3); Monocytes % 7.1 % (3.3-12.3); Neutrophils % 59.4 % (41.7-73.7); Platelets 239 thou/uL (152-406); RBC Red Blood Cell Count 4.66 M/uL (3.86-4.86); Red Cell Distribution Width 14.9 % (12.1-15.2)
[2024-04-08 17:20] LABS: AST/SGOT 13 U/L (15-37); Albumin 3.8 g/dL (3.4-5.0); Albumin/Globulin Ratio 1.1 (1.1-1.8); Alkaline Phosphatase 47 U/L (45-117); Anion Gap 6.4 mEq/L (5.0-15.0); BUN Blood Urea Nitrogen 7 mg/dL (7-18); Bicarbonate 26 mEq/L (21-32); Bilirubin Total 0.6 mg/dL (0.2-1.0); Globulin 3.4 g/dL (2.3-3.5); Glomerular Filtration Rate 84 ml/min (=/>90); Glucose Level 94 mg/dL (74-106); Lipase 21 U/L (13-75); Potassium 3.4 mEq/L (3.5-5.1); Protein, Total 7.2 g/dL (6.4-8.2); Sodium Level 140 mEq/L (136-145)
[2024-04-08 17:23] LABS: ALT/SGPT < 14 U/L (13-56)
--- NOTE | 2024-04-08 17:45 | RAD REPORT ---
EXAMINATION: CT ABDOMEN AND PELVIS WITH CONTRAST CLINICAL INDICATION: Abdominal pain TECHNIQUE: CT abdomen and pelvis was performed, after the administration of 100 cc Isovue-300.. Sagit reza and coronal reconstructions were obtained. One or more of the following dose reduction techniques were used: Automated exposure control, adjustment of the mA and kV according to patient si ze, and iterative reconstruction. Unless otherwise specified, incidental findings do not require dedicated imaging follow-up. [id number]. Oral contrast was not given which limits evaluation of bowel and appendix. COMPARISON: 2022 FINDINGS: The liver, spleen, pancreas, adrenals and left kidney appear unremarkable. 2 mm calculus right kidney. No hydronephrosis There is no evidence of diverticulitis Mild gastric distention. Normal appendix. 2 cm irregularly shaped left ovarian cyst may have recently ruptured. No significant free fluid. No f ollow-up imaging. Is recommended: IMPRESSION: 2 cm irregularly shaped left ovarian cyst may have recently ruptured. No significant free fluid Mild gastric distention
--- NOTE | 2024-04-08 17:51 | ER ---
Nurse's Notes [facility] Name: Irma López Age: 29 yrs Sex: Female : 1995 Arrival Date: 04/08/2024 Time: 16:03 Bed 9 Private MD: Diagnosis: Other ovarian cysts Presentation: 04/08 16:09 Chief complaint: Patient states: Lower abdominal cramping for 2 days. Coronavirus ll1 screen: Client denies travel out of the [place] in the last 14 days. At this time, the client does not indicate any symptoms associated with coronavirus-19. Ebola Screen: Patient denies travel to an Ebola-affected area in the 21 days before illness onset. Initial Sepsis Screen: Does the patient meet any 2 criteria? No. Patient's initial sepsis screen is negative. Does the patient have a suspected source of infection? No. Patient's initial sepsis screen is negative. Risk Assessment: Do you want to hurt yourself or someone else? Patient reports no desire to harm self or others. Onset of symptoms was April 07, 2024. 16:09 Method Of Arrival: Ambulatory ll1 16:09 Acuity: TAZ 3 ll1 Triage Assessment: 16:10 General: Appears in no apparent distress. Behavior is calm, cooperative, appropriate ll1 for age. Pain: Complains of pain in abdomen Quality of pain is described as crampy. GI: Reports lower abdominal pain, cramping. : Reports 1 positive test, 1 negative test at home. 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 - Infectious Disease History:: Denies. - Social history:: Smoking status: Patient denies any tobacco usage or history of. Screenin:44 [facility] ED Fall Risk Assessment (Adult) History of falling in the last 3 months, ll1 including since admission No falls in past 3 months (0 pts) Confusion or Disorientation No (0 pts) Intoxicated or Sedated No (0 pts) Impaired Gait No (0 pts) Mobility Assist Device Used No (0 pt) Altered Elimination No (0 pt) Score/Fall Risk Level 0 - 2 = Low Risk Maintained a safe environment, Hourly rounding (assess needs \T\ fall precautionary measures) done. Abuse screen: Denies threats or abuse. Nutritional screening: No deficits noted. Tuberculosis screening: No symptoms or risk factors identified. Assessment: 16:35 Reassessment: No changes from previously documented assessment. Patient and/or family ll1 updated on plan of care and expected duration. Pain level reassessed. Patient is alert, oriented x 3, equal unlabored respirations, skin warm/dry/pink. 16:57 Reassessment: No changes from previously documented assessment. Patient and/or family ll1 updated on plan of care and expected duration. Pain level reassessed. Patient is alert, oriented x 3, equal unlabored respirations, skin warm/dry/pink. 18:00 Reassessment: No changes from previously documented assessment. Patient and/or family ll1 updated on plan of care and expected duration. Pain level reassessed. Patient is alert, oriented x 3, equal unlabored respirations, skin warm/dry/pink. 18:01 GI: Bowel sounds present X 4 quads. Abd is soft and non tender X 4 quads. ll1 Vital Signs: 16:09 BP 133 / 82; Pulse 95; Resp 17; Temp 97.3; Pulse Ox 100% ; Weight 56.7 kg; Height 5 ft. ll1 0 in. ; Pain 5/10; 18:00 BP 131 / 81; Pulse 91; Resp 17; Pulse Ox 100% ; ll1 16:09 Body Mass Index 24.41 (56.70 kg, 152.4 cm) ll1 16:09 Pain Scale: Adult ll1 ED Course: 16:05 Patient arrived in ED. ra3 16:08 David De La Cruz MD is Attending Physician. ec2 16:10 Triage completed. ll1 16:10 Arm band placed on. ll1 16:13 [facility] kb 16:32 Urinalysis w/ reflexes Sent. ll1 16:32 Test, Urine Sent. ll1 16:35 He Sharma, PURNIMA is Primary Nurse. ll1 16:35 Door closed. Warm blanket given. ll1 16:44 Patient has correct armband on for positive identification. Bed in low position. ll1 Provided Education on: ER procedures and process. Cardiac monitoring not applicable on this patient. 16:53 Inserted saline lock: 22 gauge in left antecubital area, using aseptic technique. ll1 ,using aseptic technique. site labeled with time/date/initials Blood collected. Flushed with 10 mL NS. 17:37 CT Abd/Pelvis - IV Contrast Only In Process Unspecified. EDMS 17:43 PHCP role handed off by Lori Peace FNP-C sbSixto 17:43 Karen Macias PA-C is PHCP. sb4 17:47 PHCP role handed off by Karen Macias PA-C kb 17:47 Lori Peace FNP-C is PHCP. kb 18:01 No provider procedures requiring assistance completed. IV discontinued, intact, ll1 bleeding controlled, No redness/swelling at site. Pressure dressing applied. Administered Medications: 17:50 CANCELLED (Physician Discretion): ns 0.9% 1000 ml IV at 1000 ml once; to be given as a kb bolus over 60 minutes 17:57 Not Given (Patient Refused): [id number] mg IVP once ll1 Medication: 16:44 VIS not applicable for this client. ll1 Outcome: 17:50 Discharge ordered by . kb 18:01 Patient left the ED. ll1 18:01 Discharged to home ambulatory, ll1 18:01 Condition: stable 18:01 Discharge instructions given to patient, Instructed on discharge instructions, follow up and referral plans. medication usage, Demonstrated understanding of instructions, follow-up care, medications, Prescriptions given X 1, Signatures: Dispatcher [employer] EDNC Lori Peace FNP-C FNP-Ckb Lewis, Lynsay, RN RN ll1 Karen Macias PA-C PA-C sb4 David De La Cruz MD MD ec2 Lucie Saucedo ra3 Corrections: (The following items were deleted from the chart) 18:10 18:01 Patient did not have IV access during this emergency room visit. ll1 ll1
--- NOTE | 2024-04-08 17:51 | EDPHYS ---
Physician Documentation [facility] Name: Irma López Age: 29 yrs Sex: Female : 1995 Arrival Date: 04/08/2024 Time: 16:03 Bed 9 Private MD: ED Physician David De La Cruz HPI: 04/08 17:05 This 29 yrs old Black Female presents to ER via Ambulatory with complaints of Abdominal kb Pain - x2days. 17:05 Pt is a 29 year old female who presents for lower abd pain that started 2 days ago. kb States her period is a week late so she isn't sure if she is , but she has not had any vaginal bleeding. Denies n/v/d. . 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 - Infectious Disease History:: Denies. - Social history:: Smoking status: Patient denies any tobacco usage or history of. ROS: 17:03 Constitutional: As per HPI kb Exam: 17:03 Constitutional: This is a well developed, well nourished patient who is awake, alert, kb and in no acute distress. Head/Face: Normocephalic, atraumatic. ENT: Moist Mucous membranes Cardiovascular: Regular rate Respiratory: Respirations even and unlabored. No increased work of breathing. Talking in full sentences Skin: Warm, dry with normal turgor. Normal color. MS/ Extremity: Pulses equal, no cyanosis. Neurovascular intact. Full, normal range of motion. Neuro: Awake and alert, GCS 15, oriented to person, place, time, and situation. Moves all extremities. Normal gait. 17:03 Abdomen/GI: Inspection: abdomen appears normal, Bowel sounds: normal, Palpation: soft, in all quadrants, mild abdominal tenderness, in the suprapubic area, right lower quadrant and left lower quadrant, Vital Signs: 16:09 BP 133 / 82; Pulse 95; Resp 17; Temp 97.3; Pulse Ox 100% ; Weight 56.7 kg; Height 5 ft. ll1 0 in. ; Pain 5/10; 18:00 BP 131 / 81; Pulse 91; Resp 17; Pulse Ox 100% ; ll1 16:09 Body Mass Index 24.41 (56.70 kg, 152.4 cm) ll1 16:09 Pain Scale: Adult ll1 MDM: 16:14 Patient medically screened. kb 17:03 Differential diagnosis: appendicitis, non-specific abd pain, urinary tract infection, kb ovarian cyst, . Data reviewed: vital signs, nurses notes. 17:50 Counseling: I had a detailed discussion with the patient and/or guardian regarding the kb historical points, exam findings, and any diagnostic results supporting the discharge/admit diagnosis, lab results, radiology results, the need for outpatient follow up, an OB/Gyne specialist, to return to the emergency department if symptoms worsen or persist or if there are any questions or concerns that arise at home. 04/08 16:16 Order name: Test, Urine; Complete Time: 16:47 kb 04/08 16:16 Order name: Urinalysis w/ reflexes; Complete Time: 16:45 kb 04/08 16:48 Order name: CBC with Diff; Complete Time: 17:12 kb 04/08 16:48 Order name: CMP; Complete Time: 17:24 kb 04/08 16:48 Order name: Lipase; Complete Time: 17:24 kb 04/08 16:48 Order name: CT Abd/Pelvis - IV Contrast Only; Complete Time: 17:47 kb 04/08 16:48 Order name: IV Saline Lock; Complete Time: 16:49 kb 04/08 16:48 Order name: Labs collected and sent; Complete Time: 16:49 kb Administered Medications: 17:50 CANCELLED (Physician Discretion): ns 0.9% 1000 ml IV at 1000 ml once; to be given as a kb bolus over 60 minutes 17:57 Not Given (Patient Refused): [id number] mg IVP once ll1 Disposition Summary: 04/08/24 17:50 Discharge Ordered Notes: Location: Home kb Condition: Stable kb Diagnosis - Other ovarian cysts kb Followup: kb - With: Emergency Department - When: As needed - Reason: Worsening of condition Followup: kb - With: Private Physician - When: 2 - 3 days - Reason: Recheck today's complaints, Continuance of care, Re-evaluation by your physician Discharge Instructions: - Discharge Summary Sheet kb - Ovarian Cyst, [id number] kb Forms: - Medication Reconciliation Form kb - Antibiotic Education kb - Prescription Opioid Use kb - Patient Portal Instructions kb - Leadership Thank You Letter kb Prescriptions: - Diclofenac Sodium 75 mg Oral tablet, delayed release (enteric coated) - take 1 tablet ORAL route 2 times per day As needed; 30 tablet; Refills: 0, kb Product Selection Permitted Addendum: 04/10/2024 17:59 I was immediately available for consultation during this patient's visit. I did not e c2 personally see the patient or discuss the patient with the [facility]. . Signatures: Dispatcher [employer] EDLori Yousif, PHIC He Hayes RN RN ll1 Karen Macias PA-C PAAaron [id number] David De La Cruz MD MD ec2 Corrections: (The following items were deleted from the chart) 04/08 17:50 17:43 NS 0.9% IV 1000 ml IV at 1000 ml once; to be given as a bolus over 60 minutes kb ordered. kb
[2024-04-08] MEDS ORDERED: KETOROLAC 30 MG/ML INJ ONE (17:56)
[2024-04-08 21:02] VITALS: BP 133/82; TEMP 97.3; O2SAT 100
== END 2024-04-08 18:01 | disposition home or self-care (01) ==
LOC: ER 16:03
DX: N83.292 Other ovarian cyst, left side (principal)
CPT/HCPCS: 85025; 81001; 36415; 81025; 83690; 80053; 74177; Q9967